=== PATIENT | female | born 1960 | race Caucasian/White ===

== ENCOUNTER 2019-03-09 15:23 | Inpatient (IN) | payer MEDICARE, MEDICAID, SELFPAY ==
[2019-03-09] VITALS (16 sets, daily range): BP systolic 113–142; BP diastolic 49–117; PULSE 78–112; RESP 13–21; TEMP 36.7–37.3; O2SAT 96–100
--- NOTE | 2019-03-09 15:57 | ED.GENADUL_ITS ---
Discharge Plan Disposition Patient Disposition: [facility] INPATIENT Condition: Stable Discharge Details Chief Complaint: Abd Prob Clinical Impression: Chronic diarrhea, Enteritis, Transaminitis, Chronic vomiting Admit Date/Time: 03/09/19 19:42 Admit Provider: David Roberts Attending Provider: David Roberts Primary Care Provider: Ravindra Knowles ED Provider: Freda Stout Discharge Data Discharge Date/Time-TO BE ENTERED AT DEPARTURE: 03/09/19 20:41 Medical Decision Making 58-year-old female with history of COPD, diabetes, and history of cholecystectomy 2 mesenteric stents due to mesenteric ischemia who presents with nausea, vomiting and diarrhea for the past 2 months, worse today and associated with right upper quadrant abdominal and back pain. Vitals within normal limits. She appears nontoxic. She has tenderness to palpation in the right upper quadrant. Differential diagnosis includes gastroenteritis, C. difficile colitis, mesenteric ischemia, diverticulitis, UTI, cyclic vomiting. 1700 --Labs and IV and fluids ordered on arrival and notes a normal white blood cell count, hemoglobin of 10 platelets 621, creatinine 1.46, GFR 36, lactate 1.5, AST 707, ALT 268, alk phos 230, troponin and lipase within normal limits. Would prefer CT with IV contrast but due to decreased renal function, CT abdomen and pelvis with p.o. contrast only ordered. 184 -- CT notes findings consistent with enteritis versus inflammatory bowel disease or other infectious etiology. Patient gave a large bowel movement here which was foul-smelling, greenish, loose and watery. 1900 -- Patient is not aware of a previous history of elevated liver enzymes. As her symptoms are worsening, in the setting of unknown onset of transaminitis, concern for infectious diarrhea, and with continued IV fluids with possible attempt at CT abdomen with IV contrast, will admit for observation and further evaluation. Case discussed with hospitalist and accepts patient for admission. Medical Records Medical records reviewed: Yes I reviewed the patient's medical records. HPI General Mode of arrival: ambulatory . Date/Time Provider Initiated Documentation: 03/09/19 15:40 . Limitations to Documentation: no limitations . Information obtained by: patient . HPI Narrative: Patient is a 58-year-old female with history of COPD, diabetes and diabetic neuropathy with 2 mesenteric stents due to mesenteric ischemia who presents the ED with complaint of vomiting and diarrhea for the past 2 months. States the vomiting occurs 1-3 times daily, usually in the morning and with any food or drink. She admits to 6-8 episodes of watery brown diarrhea daily. She also admits to intermittent right upper quadrant abdominal pain but states this became more constant today with radiation around to her right mid back. She describes the pain as a dull ache. She is visiting here from [place] with her daughter. She was planning to return tomorrow. She denies any fever, recent antibiotics, recent hospital admission, or urinary symptoms. Related Data Home Medications Medication Instructions Recorded Confirmed dexlansoprazole [Dexilant] 60 mg PO DAILY 03/09/19 03/09/19 Allergies Allergy/AdvReac Type Severity Reaction Status Date / Time Penicillins Allergy Intermediate Unverified 03/09/19 15:37 rifampin Allergy Intermediate Unverified 03/09/19 15:37 levofloxacin [From Levaquin] Allergy Unverified 03/09/19 15:38 General Stated Complaint: Abd Prob LIBERTAD: 3 Review of Systems Review of Systems All systems reviewed & are unremarkable except as noted in HPI and below Constitutional Reports as per HPI, Denies chills and Denies fever(s) Eyes Denies blurry vision ENT Denies dizziness, Denies sore throat and Denies throat swelling Cardiovascular Denies chest pain and Denies dyspnea Respiratory Denies cough and Denies dyspnea Gastrointestinal Reports abdominal pain, Reports diarrhea and Reports vomiting Genitourinary Denies hematuria and Denies dysuria Musculoskeletal Denies back pain and Denies numbness Integumentary/Breasts Denies lesions and Denies rash Neurologic Denies dizziness, Denies focal weakness and Denies numbness Allergic/Immunologic Denies throat swelling [facility] Medical History COPD (chronic obstructive pulmonary disease) (Chronic) Diabetes (Chronic) Diabetic neuropathy (Acute) Temporal arteritis (Acute) Surgical History History of hernia repair (Chronic) Hx of cholecystectomy (Chronic) Mesenteric ischemia (Acute) Social History Smoking/Tobacco Use Status: Former Tobacco Use Alcohol Intake: never Substance use type: does not use Do you feel safe at home: Yes Exam Const General: cooperative, healthy appearing and no acute distress [facility] Head: normal to inspection Face and sinus: normal facial exam Eyes General: appearance normal, both eyes and all related structures EOM: EOM intact bilaterally Neck Neck: normal visual inspection and No submandibular swelling Lymphatic: no lymphadenopathy noted Chest Chest: normal inspection of the chest and no tenderness Resp Effort & Inspection: normal respiratory effort and able to speak in complete sentences Auscultation: clear to auscultation bilaterally Cardio Rate: regular rate Rhythm: regular rhythm GI Inspection: normal to inspection and obesity Palpation: soft, not firm, not rigid and tender in the RUQ Auscultation: hypoactive bowel sounds Other: Stool obtained and loose and watery and greenish foul-smelling Skin General skin exam: no rashes or lesions noted Neuro General: alert, awake and oriented x3 Cognition: normal cognition Speech: speech normal Motor: muscle tone normal throughout Sensory Exam: no sensory deficits noted Extrem General: normal to inspection, full ROM, normal capillary refill, no calf tenderness bilaterally and no edema Psych Appearance: grossly normal Mental Status: mental status grossly normal Speech and Movement: speech and movement normal Affect: normal affect Course Vital Signs Temperature 98.1 F 03/09/19 15:34 Pulse 92 H 03/09/19 15:34 Respiratory Rate 16 03/09/19 15:34 Blood Pressure 132/52 L 03/09/19 15:34 Pulse Oximetry 96 03/09/19 15:34 Temperature 98.1 F 03/09/19 15:34 Temperature Source Temporal Artery Scan 03/09/19 15:34 Pulse 92 H 03/09/19 15:34 Respiratory Rate 16 03/09/19 15:34 Respiratory Effort 03/09/19 15:52 Blood Pressure 132/52 L 03/09/19 15:34 Blood Pressure Position Sitting 03/09/19 15:34 Pulse Oximetry 96 03/09/19 15:34 Oxygen Delivery Method Nasal Cannula 03/09/19 15:34 Oxygen Flow Rate 0 03/09/19 15:34 Pain Level 9 03/09/19 15:34 Comment 03/09/19 15:34
[2019-03-09 16:10] LABS: Abs Immature Grans 0.02 k/cumm (0.0-0.09); Absolute Basophil Count 0.03 k/cumm (0.0-0.2); Absolute Eosinophil Count 0.08 k/cumm (0.0-0.7); Absolute Lymphocyte Count 1.45 k/cumm (1.2-3.4); Absolute Monocyte Count 0.72 k/cumm (0.11-0.7); Absolute Neutrophil Count 7.15 k/cumm (1.2-6.7); Basophils % 0.3; Eosinophils % 0.8; HCT 32.6 % (36.0-46.0); Immature Grans % 0.2; Lymphocytes % 15.3; Mean Corp. HGB Concentration 30.7 g/dL (32.0-36.0); Mean Corpuscular Hemoglobin 28.5 pg (27.0-33.0); Mean Corpuscular Volume 92.9 fL (80-95); Mean Platelet Volume 9.2 fL (8.0-11.0); Monocytes % 7.6; Neutrophils % 75.8; Platelet Count 621 x1000/uL (130-400); RBC 3.51 m/cumm (4.00-5.20); RBC Distribution Width 15.7 % (11.7-14.6); White Blood Cell Count 9.45 k/cumm (4.4-10.8)
[2019-03-09 16:11] LABS: Lactate 1.5 mmol/L (0.6-1.4)
[2019-03-09 16:26] LABS: ALT 268 U/L (12-78); AST 707 U/L (15-37); Albumin 3.4 g/dL (3.4-5.0); Alkaline Phosphatase 230 U/L (46-116); Anion Gap 8.8 mmol/L (3-11); BUN 28 mg/dL (7-18); Bilirubin, Total 0.5 mg/dL (0.2-1.0); CO2 30.2 mmol/L (21.0-32.0); CREATININE 1.46 mg/dL (0.55-1.02); Calcium 9.4 mg/dL (8.5-10.1); Chloride 100 mmol/L (98-107); Estimated GFR 36.54 (mL/min/1.73m2); Glucose 112 mg/dL (70-100); Lipase 118 U/L (73-393); Magnesium 1.7 mg/dL (1.8-2.4); Potassium 4.3 mmol/L (3.5-5.1); Sodium 139 mmol/L (136-145)
[2019-03-09 16:27] LABS: Troponin I < 0.05 ng/mL (0.00-0.06)
--- NOTE | 2019-03-09 16:30 | DI.CT_ITS ---
SYMPTOM/DIAGNOSIS: ABDOMINAL PAIN, NAUSEA/VOMITING, R/O ACUTE PROCESS ABDOMINAL AND PELVIC CT: 03/09 CT examination of the abdomen and pelvis was performed with oral contrast only. Images obtained through the lung bases are unremarkable. Mitral valve prosthesis noted in position. Liver, spleen and pancreas are unremarkable by noncontrast criteria. No biliary dilatation seen. Abdominal aorta is of normal diameter. Left renal cyst noted at the inferior pole. No evidence of urinary tract calcification or obstruction. No abdominal or pelvic adenopathy. Small fat containing umbilical hernia and small bilateral fat containing inguinal hernias noted. [employer] structures are unremarkable for age. There is loop of jejunum with findings suggesting thickened wall in the proximal jejunum. No gross evidence of obstruction with nondilated stomach. Remainder of the visualized small bowel and colon are unremarkable. No evidence of appendicitis or diverticulitis. CONCLUSION: Focal jejunal wall thickening, etiology uncertain. Appropriate follow up studies and clinical correlation requested.
[2019-03-09] MEDS: Normal Saline 500 ML IV (17:28)
[2019-03-09] MEDS: Breeza Beverage 473 ML BTL PO (18:01)
--- NOTE | 2019-03-09 18:46 | DI.VRAD_ITS ---
EXAM: CT Abdomen and Pelvis Without Contrast EXAM DATE/TIME: 03/09/2019 4:32 PM CLINICAL HISTORY: 58 years old, female; Nausea and vomiting; Abdominal pain TECHNIQUE: Imaging protocol: Axial computed tomography images of the abdomen and pelvis without contrast. Coronal and sagittal reformatted images were created and reviewed. COMPARISON: No relevant prior studies available. FINDINGS: Heart: Dense mitral valve calcifications. Liver: Unenhanced liver appears unremarkable. Gallbladder and bile ducts: Status post cholecystectomy. Pancreas: The pancreas is normal. Spleen: Normal. No splenomegaly. Adrenals: No adrenal mass is present. Kidneys and ureters: Mild perinephric stranding on the left. 2.5 cm and 2.6 cm left lower pole renal cysts. Kidneys are otherwise unremarkable. Stomach and bowel: There is circumferential thickening of the wall of a loop of proximal jejunum that may represent enteritis. Appendix: A normal-appearing appendix is not identified. Please correlate with patient's postsurgical history. Intraperitoneal space: Normal. No free air. No significant fluid collection. Vasculature: Atherosclerotic calcifications of the aorta and iliac arteries without evidence of aneurysm. Lymph nodes: Normal. No enlarged lymph nodes. Bladder: Unremarkable as visualized. Reproductive: Unremarkable as visualized. Bones/joints: Degenerative changes of the lumbar spine without acute osseous abnormality. Degenerative changes of the lumbar spine without acute osseous abnormality. Soft tissues: Small fat containing umbilical hernia. There is small fat-containing left inguinal hernia. IMPRESSION: There is circumferential thickening of the wall of a loop of proximal jejunum that may represent enteritis. Changes of inflammatory bowel disease cannot be excluded. Infectious etiologies are also possible. Please correlate with patient's clinical and laboratory findings. This could be further evaluated with a followup small bowel series. Dictated and Authenticated by: Juan Foster MD. Ordering:KEERTHI Barba MD
[2019-03-09] MEDS: metroNIDAZOLE 500 MG/100 ML BAG 100 MG IVPB (19:45)
[2019-03-09] MEDS: Vancomycin 125 MG CAP PO (20:00)
--- NOTE | 2019-03-09 21:13 | W.PM.HP.N ---
Date of service: 03/09/19 Time of Service: 21:13 Assessment and Plan (1) Diarrhea of presumed infectious origin: Current visit: Yes Status: Acute patient w/ 2 month hx of diarrhea w/out fever and no ill contacts and no recent hospitalizations nor any antibiotic use. Her C. difficile antigen was positive but her toxin was negative, therefore stool sent for PCR confirmation. Meanwhile she is being treated w/ iv fluid hydration, iv flagyl and oral vancocin. However, her transaminitis and localization of her abdominal pains to her RUQ can not be explained by her C diff. See below for further evaluation plans (2) Transaminitis: Current visit: Yes Status: Acute given her diarrhea and elevated LFT's (transaminases and alkaline phosphatase0 without rise in total bilirubin, and prior cholecystectomy, choledocholithiasis and cholangitis needed to be rule out. Her CT abdomen and pelvis with contrast did not support either diagnosis, nevertheless, I will get abdominal US to rule out any biliary ductal dilatation. She will also have labs for acute hepatitis profile drawn given her diarrhea. Hold her metformin and Daliresp (3) RUQ abdominal pain: Current visit: Yes Status: Acute work as above. will treat her pain w/ narcotic analgesics. (4) COPD (chronic obstructive pulmonary disease): Current visit: Yes Status: Chronic continue home bronchodilators but hold her Daliresp in light of her elevated transaminases Qualifiers: COPD type: unspecified COPD Qualified Code(s): J44.9 - Chronic obstructive pulmonary disease, unspecified (5) Diabetic neuropathy: Current visit: Yes Status: Acute continue treatment of her DM w/ insulin including CHO coverage and SSI for elevated glucose readings. continue he Lantus at her home dose. check an A1c. 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 She is now having explosive watery diarrhea. She denies a fever or rigors. She is visiting here from [facility] and was visiting her daughter in [facility]. She was evaluated sometime in the last couple months in the emergency room in [place] and is followed up with her primary care provider with no diagnosis of her diarrhea. She says the abdominal pain is similar to when she had the mesenteric ischemia. The pain is in the right upper quadrant and radiates into the middle of her back and is a dull achy pain that gets worse at times. Work-up in the emergency room included routine labs and a noncontrast CT scan of her abdomen pelvis. CBC shows a chronic anemia with a hemoglobin of 10 g hematocrit 32%. Review of her labs from [facility] from 2018 showed her hemoglobin was previously 11 g. She has an elevated platelet count 621,000 and she does have an increase in her neutrophils at 7150. Her chemistry profile shows prerenal azotemia with a BUN of 28 creatinine 1.46. Electrolytes show a low magnesium of 1.7 but normal potassium and sodium and chlorides. Blood lactate was elevated initially at 1.5 and a repeat level 5 hours later came down to 0.6 after IV fluid hydration. She has a transaminitis with an AST of 707, ALT 268 and alkaline phosphatase of 230. Her total bilirubin is normal at 0.5 and her albumin is normal at 3.4 and her lipase is normal at 118. Troponin was less than 0.05. Urinalysis was ordered but has not been obtained. Stool was sent for cultures as well as C. difficile studies and the preliminary report demonstrates a positive C. difficile antigen but negative for C. difficile toxin and studies have been sent for PCR analysis stool for occult blood was negative. CT scan of the abdomen and pelvis without contrast showed circumferential thickening of the wall of a loop of proximal jejunum possibly representing enteritis. The rest of the CT scan was unremarkable. Liver appeared unremarkable and the gallbladder and bile ducts show she is status post cholecystectomy and the pancreas was normal as well as the spleen and adrenal glands. She has some left lower pole renal cyst but otherwise unremarkable kidneys. Appendix appear to be normal. She has atherosclerotic calcifications of the aorta and iliac arteries without evidence of aneurysm. She has a small fat-containing umbilical hernia small fat-containing left inguinal hernia with no incarceration. Patient is being admitted for IV fluid hydration analgesics and antiemetics and treatment for C. difficile enteritis. Further work-up will be performed to evaluate her transaminitis. In light of her history of mesenteric ischemia and presenting with similar pains there is some concern for hepatic thrombosis. Her acute kidney injury presumably is due to her dehydration. The anemia appears to be a chronic issue and there is been no evidence of acute GI bleeding. Review of Systems Constitutional Reports as per HPI, Denies chills, Reports fatigue, Denies fever(s) and Reports poor appetite Cardiovascular Reports system reviewed and no additional complaints, except as docu Respiratory Reports system reviewed and no additional complaints, except as docu Gastrointestinal Reports as per HPI, Reports abdominal pain, Denies coffee ground emesis, Denies dyspepsia, Denies heartburn, Reports diarrhea, Reports nausea, Reports vomiting and Denies hematemesis Genitourinary Reports system reviewed and no additional complaints, except [facility] Musculoskeletal Reports system reviewed and no additional complaints, except as [facility] Integumentary/Breasts Reports system reviewed and no additional complaints, except as [facility] Neurologic Reports system reviewed and no additional complaints, except as [facility] Psychiatric Reports system reviewed and no additional complaints, except as [facility] Endocrine Reports fatigue Hematologic/Lymphatic Reports system reviewed and no additional complaints, except as [facility] Allergic/Immunologic Reports system reviewed and no additional complaints, except as [facility] PFSH Medical History COPD (chronic obstructive pulmonary disease) (Chronic) Diabetes (Chronic) Diabetic neuropathy (Acute) Temporal arteritis (Acute) Surgical History History of hernia repair (Chronic) Hx of cholecystectomy (Chronic) Mesenteric ischemia (Acute) Social History Smoking/Tobacco Use Status: Former Tobacco Use Alcohol Intake: never Substance use type: does not use Do you feel safe at home: Yes Meds Home Medications Medication Instructions Recorded Confirmed Type albuterol sulfate [ProAir HFA] 2 puff INHALATION PRN PRN 03/09/19 03/09/19 History amlodipine [Norvasc] 10 mg PO DAILY 03/09/19 03/09/19 History aspirin 81 mg PO BID 03/09/19 03/09/19 History bupropion HCl [Wellbutrin SR] PO 03/09/19 History chlorthalidone mg 03/09/19 History cholecalciferol (vitamin D3) 5,000 unit PO DAILY 03/09/19 03/09/19 History [Vitamin D3] clopidogrel [Plavix] 75 mg PO DAILY 03/09/19 03/09/19 History dexlansoprazole [Dexilant] 60 mg PO DAILY 03/09/19 03/09/19 History dicyclomine 20 mg PO QID PRN PRN 03/09/19 03/09/19 History duloxetine [Cymbalta] 60 mg PO DAILY 03/09/19 03/09/19 History fluticasone propion-salmeterol 1 inh INHALATION BID 03/09/19 03/09/19 History [Advair Diskus] insulin glargine [Lantus Solostar 16 unit SUBCUT HS 03/09/19 03/09/19 History U-100 Insulin] lorazepam 1 mg PO HS 03/09/19 03/09/19 History losartan-hydrochlorothiazide 1 tab PO DAILY 03/09/19 03/09/19 History magnesium 400 mg PO BID 03/09/19 03/09/19 History metformin 1,000 mg PO BID 03/09/19 03/09/19 History metoprolol succinate 25 mg PO HS 03/09/19 03/09/19 History roflumilast [Daliresp] 500 mcg PO DAILY 03/09/19 03/09/19 History tiotropium bromide [Spiriva with 1 cap INHALATION DAILY 03/09/19 03/09/19 History HandiHaler] tramadol [Ultram] 50 mg PO HS 03/09/19 03/09/19 History Allergies Allergy/AdvReac Type Severity Reaction Status Date / Time Penicillins Allergy Intermediate Unverified 03/09/19 15:37 rifampin Allergy Intermediate Unverified 03/09/19 15:37 levofloxacin [From Levaquin] Allergy Unverified 03/09/19 15:38 Exam Const General: cooperative and ill appearing chronically Nutritional Appearance: obese morbidly obese Orientation: alert, awake and oriented x3 HENMT Head: normal to inspection, no palpable skull fracture and normocephalic Mouth: oral mucosae normal, lip normal, tongue normal, oropharynx normal and moist mucous membranes Teeth and gingiva: dentures and edentulous Eyes General: appearance normal, both eyes and all related structures Visual Prather: normal visual prather by confrontation Alignment and Position: alignment normal Periorbital: periorbital findings normal Eyelids: eyelids normal Conjunctivae: conjunctivae normal Sclera: sclerae normal Cornea: corneas normal Pupils: PERRL EOM: EOM intact bilaterally Direct ophthalmoscopy: normal light reflex Neck Neck: normal visual inspection, full ROM, no lymphadenopathy, trachea midline and no JVD Carotids: normal carotid upstroke Lymphatic: no lymphadenopathy noted Resp Effort & Inspection: normal respiratory effort, able to speak in complete sentences and prolonged expiratory phase Auscultation: clear to auscultation bilaterally Cardio Jugular venous pressure: no JVD Palpation: normal PMI Rate: regular rate Rhythm: regular rhythm Heart Sounds: S1 normal, S2 normal, normal, physiologic split S2, no gallops, no murmurs and no rubs Bruits: no abdominal aortic bruits and no carotid bruits Pulses: posterior tibial pulses present bilaterally diminished and dorsalis pedis pulses present bilaterally diminished GI Inspection: obesity Palpation: soft, no hepatosplenomegaly, guarding in the RUQ and tender in the RUQ; Billingsley's sign negative and with no rebound tenderness Percussion: normal to percussion Auscultation: normal bowel sounds General: bladder normal to palpation and No CVA tenderness Bimanual Exam- Vagina & Uterus: bladder normal to palpation Back/Spine/Pelvis Back: no CVA tenderness Cervical Spine: normal cervical lordosis Thoracic/Lumbar Spine: thoracic and lumbar spine normal to inspection Skin General skin exam: no rashes or lesions noted, elasticity normal and turgor normal Lesions: no lesions Rashes: no rashes Neuro General: alert, awake, oriented x3, moves all extremities and no focal motor deficits Cranial Nerves: CN's II-XI intact bilaterally Cognition: normal cognition Speech: speech normal Motor: muscle tone normal throughout and no movement abnormalities noted Sensory Exam: no sensory deficits noted Extrem General: normal to inspection, full ROM, no joint enlargement, no clubbing, cyanosis or edema and no calf tenderness Psych Appearance: grossly normal Mental Status: mental status grossly normal Speech and Movement: speech and movement normal Mood: congruent mood Affect: normal affect Attitude: cooperative Thought Process: normal Thought Content: normal Insight: insight good Judgment: judgment good Results Imaging Additional studies: CT angiogram abdomen and pelvis: FINDINGS: VASCULATURE: Aorta: No aortic aneurysm. No aortic dissection. Celiac trunk and mesenteric arteries: Prominent atherosclerotic calcification of the celiac trunk limits evaluation. Stent of the proximal superior mesenteric artery evaluation for stenosis of the stent limited due to be marked artifact but with flow seen distal to this head without stenosis. Renal arteries: No occlusion or significant stenosis. Right iliac arteries: No occlusion or significant stenosis. Left iliac arteries: No occlusion or significant stenosis. ABDOMEN: Liver: No mass. Gallbladder and bile ducts: Status post cholecystectomy. Pancreas: Unremarkable. No mass. No ductal dilation. Spleen: Unremarkable. No splenomegaly. Adrenals: Unremarkable. No mass. Kidneys and ureters: Renal cysts up to 3 cm. No hydronephrosis. Stomach and bowel: Colonic diverticula. Appendix: No evidence of appendicitis. PELVIS: Bladder: Unremarkable. No mass. Reproductive: Unremarkable as visualized. ABDOMEN and PELVIS: Intraperitoneal space: Unremarkable. No free air. No significant fluid collection. Bones/joints: No acute fracture. No dislocation. Soft tissues: Tiny fat-containing left inguinal hernia. Fat-containing periumbilical ventral hernia. Lymph nodes: Unremarkable. No enlarged lymph nodes. IMPRESSION: No acute finding. Dictated and Authenticated by: Nirav Cadena MD. Labs : 03/10/19 06:25 03/10/19 06:25 Laboratory Results - last 24 hr 03/09/19 03/09/19 03/09/19 16:02 16:02 16:02 WBC 9.45 RBC 3.51 L Hgb 10.0 L Hct 32.6 L MCV 92.9 MCH 28.5 MCHC 30.7 L RDW 15.7 H Plt Count 621 H MPV 9.2 Immature Gran % 0.2 Neutrophils % 75.8 Lymphocytes % 15.3 Monocytes % 7.6 Eosinophils % 0.8 Basophils % 0.3 Absolute Neutrophils 7.15 H Absolute Lymphocytes 1.45 Absolute Monocytes 0.72 H Absolute Eosinophils 0.08 Absolute Basophils 0.03 Sodium 139 Potassium 4.3 Chloride 100 Carbon Dioxide 30.2 Anion Gap 8.8 BUN 28 H Creatinine 1.46 H Estimated GFR/1.73 m2 36.54 Glucose 112 H Lactate 1.5 H Calcium 9.4 Magnesium 1.7 L Total Bilirubin 0.5 AST 707 H ALT 268 H Alkaline Phosphatase 230 H Troponin I < 0.05 Total Protein 8.0 Albumin 3.4 Lipase 118 Last Vital Signs Temp 36.7 C 03/09/19 15:34 Pulse 78 03/09/19 18:01 Resp 16 03/09/19 18:10 BP 113/49 L 03/09/19 18:01 Pulse Ox 97 03/09/19 18:10
[2019-03-09 21:33] LABS: Lactate 0.6 mmol/L (0.6-1.4)
[2019-03-09] MEDS: MAGNESIUM SULFATE 2 GM/50 ML BAG IV (21:42)
[2019-03-09] MEDS: Normal Saline 1,000 ML 125 ML IV (21:42)
[2019-03-09] MEDS: Normal Saline Flush 10 ML SYR IVP ×2 (21:42→23:23)
[2019-03-09] MEDS: Pantoprazole 40 MG VIAL IVP (21:42)
--- NOTE | 2019-03-09 22:21 | NUR.NOTE ---
Patient was admitted to the med-surg unit with a history of diarrhoea for the passed 2 months. Also experiencing vomiting, right upper quadrant pain that was not being relieved with medication or lying on her stomach as previous times. Pain intensified today while she was at her daughter house and would not go away. She state she had 2 stents placed into her abdomen in 2015 and 2016 due to blood clots. She went on to state that the symptoms that she was experiencing was similar to those that she had experienced when she was diagnosed with blood clot. Pt uses 3L oxygen at home, she also state she has a home health assistant that comes in four times per week and a RN once per week to get her medications check. Head to toe assessment done and charted.
[2019-03-09] MEDS: MORPHine 2 MG/ML SYR IVP (23:21)
[2019-03-09] MEDS: Normal Saline 1,000 ML 1000 ML IV (23:21)
[2019-03-09 23:34] LABS: Bilirubin Negative (Negative); Blood Trace-intact (Negative); Clarity Sl Cloudy (Clear); Glucose Negative (Negative); Ketones Negative (Negative); Leukocyte Esterase Small (Negative); Nitrite Negative (Negative); Specific Gravity <= 1.005 (1.005-1.025); Urobilinogen 0.2 EU/dL (Up TO 0.2)
[2019-03-09 23:41] LABS: Bacteria Few HPF (Negative); C & S Indicated? No/Sq. Contamination; Casts Negative LPF (Negative); Crystals Negative HPF (Negative); Epithelial Cells Many HPF (Negative); Mucus Negative (Negative)
[2019-03-10] VITALS (7 sets, daily range): BP systolic 110–148; BP diastolic 66–75; PULSE 77–87; RESP 17–18; TEMP 35.8–36.8; O2SAT 96–98
[2019-03-10] MEDS: Vancomycin 125 MG CAP 500 MG PO ×4 (00:25→17:04)
[2019-03-10] MEDS: LORazepam 1 MG TAB PO ×2 (00:25→21:29)
[2019-03-10] MEDS: Insulin Glargine 300 UNITS/3 ML PEN 16 UNITS SC ×2 (00:25→21:28)
[2019-03-10] MEDS: MAGNESIUM SULFATE 2 GM/50 ML BAG IV (00:26)
--- NOTE | 2019-03-10 01:00 | DI.CT_ITS ---
SYMPTOM/DIAGNOSIS: ACUTE ABDOMINAL PAIN, TRANSAMINITIS R/O ISCHEMIA ABDOMINAL AND PELVIC CT ANGIOGRAM 03/10 CT angiography was performed with multi slice acquisition and multi planar and 3D reconstruction. CT angiography of the abdomen and pelvis was performed and is compared with recent oral contrast only CT. The jejunal wall thickening noted on the earlier study is not present on this examination and appears to have been transient. No evidence of obstruction. There is oral contrast material in the colon extending to the rectum and the oral contrast material has essentially cleared from the small bowel. Enhanced appearance of liver, spleen and pancreas is unremarkable. Enhanced appearance of the kidneys is unremarkable. Adrenals appear normal. There is calcified atheromatous plaque involving abdominal aorta and all branch vessels. Celiac trunk origin is narrowed and obscured. Presumed SMA stent vs calcification, more distal vessels are opacified. Renal arteries show calcified origins which are difficult to quantify for stenosis. Inferior mesenteric artery origin also obscured and stenosed with flow noted more distally. No focal bowel pathology identified. CONCLUSION: Severe atheromatous disease, no evidence of acute occlusion. Please see above discussion.
[2019-03-10] MEDS: Omnipaque 350 MG/ML 100 ML BTL IJ (01:07)
[2019-03-10] MEDS: Normal Saline Flush 10 ML SYR IVP ×3 (01:09→17:05)
--- NOTE | 2019-03-10 01:43 | DI.VRAD_ITS ---
EXAM: CT Angiography Abdomen and Pelvis With Contrast EXAM DATE/TIME: 03/10/2019 12:12 AM CLINICAL HISTORY: 58 years old, female; Prior surgery; Surgery date: 6+ months; Surgery type: Hernia repair, 2 stents mesenteric ischemia, cholecystectomy; Patient HX: Acute abdominal pain, transaminitis R/O ischemia; Additional info: Known elevated labs, ok to inject per Dr. Alejandra wilkins 1.46 grf 36.54 TECHNIQUE: Imaging protocol: Axial computed tomographic angiography images of the abdomen and pelvis with intravenous contrast material. Coronal and sagittal reformatted images were created and reviewed. 3D rendering: MIP reconstructed images were created and reviewed. Radiation optimization: All CT scans at this facility use at least one of these dose optimization techniques: automated exposure control; mA and/or kV adjustment per patient size (includes targeted exams where dose is matched to clinical indication); or iterative reconstruction. Contrast material: OMNIPAQUE 350;Contrast volume: 90 ml;Contrast route: IV RAC; COMPARISON: CT ABDOMEN PELVIS WO 03/09/2019 5:59 PM FINDINGS: VASCULATURE: Aorta: No aortic aneurysm. No aortic dissection. Celiac trunk and mesenteric arteries: Prominent atherosclerotic calcification of the celiac trunk limits evaluation. Stent of the proximal superior mesenteric artery evaluation for stenosis of the stent limited due to be marked artifact but with flow seen distal to this head without stenosis. Renal arteries: No occlusion or significant stenosis. Right iliac arteries: No occlusion or significant stenosis. Left iliac arteries: No occlusion or significant stenosis. ABDOMEN: Liver: No mass. Gallbladder and bile ducts: Status post cholecystectomy. Pancreas: Unremarkable. No mass. No ductal dilation. Spleen: Unremarkable. No splenomegaly. Adrenals: Unremarkable. No mass. Kidneys and ureters: Renal cysts up to 3 cm. No hydronephrosis. Stomach and bowel: Colonic diverticula. Appendix: No evidence of appendicitis. PELVIS: Bladder: Unremarkable. No mass. Reproductive: Unremarkable as visualized. ABDOMEN and PELVIS: Intraperitoneal space: Unremarkable. No free air. No significant fluid collection. Bones/joints: No acute fracture. No dislocation. Soft tissues: Tiny fat-containing left inguinal hernia. Fat-containing periumbilical ventral hernia. Lymph nodes: Unremarkable. No enlarged lymph nodes. IMPRESSION: No acute finding. Dictated and Authenticated by: Nirav Cadena MD. Ordering:[facility] Alejandra Hernandez MD
[2019-03-10] MEDS: traMADol 50 MG TAB PO ×2 (01:56→21:29)
[2019-03-10] MEDS: Metoprolol CR 25 MG TABCR PO ×2 (01:56→21:29)
[2019-03-10] MEDS: metroNIDAZOLE 500 MG/100 ML BAG 100 MG IVPB ×4 (02:29→19:40)
[2019-03-10] MEDS: Normal Saline 1,000 ML 125 ML IV ×2 (04:57→18:47)
--- NOTE | 2019-03-10 07:00 | DI.US_ITS ---
SYMPTOM/DIAGNOSIS: ABDOMINAL PAIN, TRANSAMINITIS ABDOMINAL ULTRASOUND: 03/10 The visualized liver parenchyma is normal in appearance. There has reportedly been a prior cholecystectomy. Common hepatic duct is of the upper limits of normal at 12-13 mm for post cholecystectomy. The pancreas is not well seen. Spleen is unremarkable in appearance. Aorta is obscured by overlying bowel gas. IVC grossly of normal diameter Kidneys appear intact. CONCLUSION: No specific abnormality identified in a patient who is status post cholecystectomy.
[2019-03-10 07:27] LABS: Abs Immature Grans 0.01 k/cumm (0.0-0.09); Absolute Basophil Count 0.03 k/cumm (0.0-0.2); Absolute Lymphocyte Count 1.01 k/cumm (1.2-3.4); Absolute Monocyte Count 0.45 k/cumm (0.11-0.7); Absolute Neutrophil Count 2.41 k/cumm (1.2-6.7); Basophils % 0.7; Eosinophils % 2.5; HCT 29.7 % (36.0-46.0); HGB 9.1 g/dL (12.0-15.5); Immature Grans % 0.2; Lymphocytes % 25.2; Mean Corp. HGB Concentration 30.6 g/dL (32.0-36.0); Mean Corpuscular Hemoglobin 28.4 pg (27.0-33.0); Mean Corpuscular Volume 92.8 fL (80-95); Mean Platelet Volume 9.2 fL (8.0-11.0); Monocytes % 11.2; Neutrophils % 60.2; Platelet Count 548 x1000/uL (130-400); RBC Distribution Width 15.7 % (11.7-14.6); White Blood Cell Count 4.01 k/cumm (4.4-10.8)
--- NOTE | 2019-03-10 07:54 | PDOC.CMIN ---
- If Service Date Differs Date of service: 03/10/19 Time of Service: 07:54 Care Management Initial Assess REASON FOR HOSPITALIZATION:: Abdominal pain, NVD PAST MEDICAL HISTORY/PAST SURGICAL HISTORY:: Medical History: COPD (chronic obstructive pulmonary disease) (Chronic). Diabetes (Chronic). Diabetic neuropathy (Acute). Temporal arteritis (Acute). Surgical History : History of hernia repair (Chronic). Hx of cholecystectomy (Chronic). Mesenteric ischemia (Acute) PREVIOUS FUNCTIONAL STATUS/SOCIAL/FAMILY SUPPORTS:: Angela lives in an apartment in [place], [place] with her 2 adult sons. Both sons are long distance truck drivers so Angela is alone much of the time. Angela also has 2 daughters who live in [place]. She is hoping to be able to move in with one of her daughters.Angela has a lot of community services where she lives. She receives meals on wheels and home help 4 times a week. She also has a director case management. CURRENT FUNCTIONAL STATUS:: Angela was sitting up in bed when CM met with her. She was pleasant and cooperative and engaged readily in conversation. Angela talked about how difficult it is to manage without the ability to drive. She is blind in one eye and has cataracts in the other. She states that her children are helpful but she hates to bother them because they are busy working and have their own lives. ADVANCE DIRECTIVES:: None on file. Patient lives in [place] and has advanced directives registered at her local hospital in [place]. Has patient been provided with information about the portal?: Yes Did the patient sign up for the portal?: No CODE STATUS:: Full Code INSURANCE COVERAGE / FINANCIAL ISSUES:: medicare. [facility] CURRENT HOME/COMMUNITY SERVICES/EQUIPMENT:: Angela has [employer] and caregivers 4 days a week for help with shopping, housework, laundry etc. Angela also has a vocational childcare teacher with [facility] by the name of Denise Dinh.She uses home oxygen. PRIMARY CARE PHYSICIAN:: Ravindra Knowles POTENTIAL DISCHARGE NEEDS:: no new services anticipated PATIENT/FAMILY EDUCATION NEEDS:: Discharge plan, limitations, follow up plan, Ask Me Three ANTICIPATED BARRIERS TO DISCHARGE:: none TRANSPORTATION:: via private vehicle with daughter when ready. PLAN:: Angela is undergoing testing to identify the cause of her transaminitis. She will likely be discharged home with a resumption of existing services. CM will continue to support patient, family and discharge planning considerations.
[2019-03-10 07:56] LABS: ALT 645 U/L (12-78); Albumin 2.9 g/dL (3.4-5.0); Alkaline Phosphatase 314 U/L (46-116); Anion Gap 8.6 mmol/L (3-11); BUN 19 mg/dL (7-18); Bilirubin, Total 0.6 mg/dL (0.2-1.0); CO2 29.4 mmol/L (21.0-32.0); CREATININE 1.22 mg/dL (0.55-1.02); Calcium 8.6 mg/dL (8.5-10.1); Chloride 104 mmol/L (98-107); Estimated GFR 44.96 (mL/min/1.73m2); Glucose 101 mg/dL (70-100); Magnesium 2.6 mg/dL (1.8-2.4); Potassium 3.7 mmol/L (3.5-5.1); Sodium 142 mmol/L (136-145)
[2019-03-10 07:58] LABS: AST 1247 U/L (15-37)
[2019-03-10] MEDS: Enoxaparin 40 MG/0.4 ML SYR SC (08:01)
[2019-03-10] MEDS: Roflumilast 500 MCG TAB PO (08:02)
[2019-03-10] MEDS: Magnesium Oxide 400 MG TAB PO ×2 (08:02→19:40)
[2019-03-10] MEDS: Cholecalciferol (Vitamin D3) 1,000 UNIT TAB 5000 UNITS PO (08:02)
[2019-03-10] MEDS: hydroCHLOROthiazide 12.5 MG TAB PO (08:02)
[2019-03-10] MEDS: Aspirin 81 MG CHEW PO ×2 (08:02→19:39)
[2019-03-10 08:03] LABS: Iron 60 ug/dL (50-175); Total Iron Binding Capacity 300 ug/dL (250-450); Transferrin Sat 20 % (15-50)
[2019-03-10] MEDS: DULoxetine 30 MG CAP 60 MG PO (08:03)
[2019-03-10] MEDS: Clopidogrel 75 MG TAB PO (08:03)
[2019-03-10] MEDS: amLODIPine 10 MG TAB PO (08:03)
[2019-03-10] MEDS: Losartan 50 MG TAB 100 MG PO (08:03)
[2019-03-10] MEDS: Budesonide/Formoterol 160/4.5 6 GM 60 PUFF INH IH ×2 (08:08→19:39)
[2019-03-10] MEDS: Tiotropium Bromide-Respimat 10 PUFF INH IH (08:11)
[2019-03-10 08:25] LABS: Ferritin 188 ng/mL (8-388)
[2019-03-10 08:26] LABS: Hemoglobin A1C 5.8 % (4.5-6.2)
[2019-03-10 09:42] LABS: Anisocytosis 1+; Diff Comment RBC Morph Reviewed; Hypochromasia 2+; Polychromasia Present
[2019-03-10] MEDS: POTASSIUM CHLORIDE 20 MEQ, POTASSIUM CHLORIDE 10 MEQ 30 MEQ PO (10:22)
--- NOTE | 2019-03-10 13:12 | DI.MRI_ITS ---
SYMPTOM/DIAGNOSIS: ABD PAIN, TRANSAMINITIS, S/P CHOLECYSTECTOMY MRCP: MRCP was performed according to the usual protocol. Incidental note is made of left renal cyst. No hepatic or pancreatic signal abnormality is seen. No adenopathy in the visualized portion of the abdomen. The patient has had a prior cholecystectomy. There is artifact from metallic clips in the gallbladder fossa. Intra and extrahepatic ducts are mildly dilated with common duct measuring about 12 mm. in diameter, this is at the upper limits of normal for post cholecystectomy patient. Pancreatic duct is non dilated. CONCLUSION: Borderline dilatation of common bile duct, no definite intraluminal filling defect identified by MRCP criteria. If there is clinical or laboratory evidence of biliary obstruction such as rising bilirubin levels, additional evaluation with ERCP may be considered to evaluate for a lesion of the distal common duct.
--- NOTE | 2019-03-10 13:19 | CHAPLAIN ---
Angela was sitting up in bed when I visited. She told me about being at he daughter's in [place], visiting her daughter's new place, and ending up in the ED here. She is from [place]. Angela said she is waiting to hear from the doctor about results from her tests. She hasn't eaten since Sunday, so she's hoping to get to eat after her next test today. Angela was pleasant and easily engaged in a conversation.
--- NOTE | 2019-03-10 16:08 | W.PM.PROGNOT ---
Date of Service Date of service: 03/10/19 Time of Service: 16:08 Assessment and Plan (1) Diarrhea: Current visit: Yes Status: Acute History of Mesenteric Ischemia and C.Diff, currently with CTA negative for occlusion and C.Diff with Ag+, Toxin negative. - Await C.Diff PCR - for now continue IV Flagyl and PO Vancomycin. - Apparent Jejunal wall thickening on original CT scan is no longer present on repeat CT. - Work-up elevated LFTs as below. - Continue Supportive care, and await stool cultures. (2) Transaminitis: Current visit: Yes Status: Acute Unknown etiology, but appears to be have worsening values this morning. - Hx Cholecystectomy, and currently with minimally elevated Alk Phos and essentially normal liver u/s and MRCP - doubt choledocholithiasis or ascending cholangitis. - Reports no new medications over the last 2-3 months, and denies any over the counter products. Denies any EtOH use or abuse. - Acute hepatitis panel ordered and pending. Transferrin saturation <45% and not indicative of Hemochromatosis. Will add FATUMA, Anti-SM Ab's, and SPEP. Will also obtain TSH. - Monitor closely and continue supportive care. Low threshold for transfer if worsening symptoms. Discussed with GI at [facility] who agrees with above plan. (3) Diabetes mellitus: Current visit: Yes Status: Chronic Continue with basal insulin and sliding scale, but monitor sugars closely as patient's diet is altered currently given her GI complaints. (4) COPD (chronic obstructive pulmonary disease): Current visit: Yes Status: Chronic Appears quiescent. Continue IGC/LABA, Tiotropium, and Daliresp. Duoneb prn. Qualifiers: COPD type: unspecified COPD Qualified Code(s): J44.9 - Chronic obstructive pulmonary disease, unspecified (5) DVT prophylaxis: Current visit: Yes Status: Acute SC Enoxaparin. Also on PPI therapy, which will be discontinued given current diarrhea. Subjective Interval history since last seen: 58-year-old woman with a prior history of IDDM and COPD, admitted from [facility] Emergency Department with reported diarrhea and evidence of elevated LFTs. Mrs. Ivy has a Past Medical History significant for COPD on home O2, IDDM, Chronic B12 and Iron Deficient Anemia, prior Temporal Arteritis with subsequent left eye blindness, and a prior septic joint. She has a prior history of Cholecystectomy, and reports a previous C.Diff infection in the setting of antibiotic use. 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 She presented to the ED with complaints of a 2 month history of nausea and vomiting, now with acute onset of RUQ pain and significant watery diarrhea. Work-up in the ED was significant for a mild anemia, elevated platelet count, and mildly elevated Creatinine. However, she was also noted to have a transaminitis, with an AST in the 700's and ALT of 268, with minimally elevated Alk Phos and essentially normal Bilirubin. Her lipase was also checked and normal. C. Diff returned with Ag+, but toxin negative. Initial non-contrast CT of the abdomen showed a focal jejunal wall thickening of uncertain etiology. Given her lab findings she was admitted for further evaluation and treatment. Following admission Mrs. Castanon symptoms have not abated. Given her history of ischemic colitis a CTA of the abdomen was obtained which showed severe atheromatous disease but no acute occlusion. By morning Mrs. Castanon RUQ pain continued to persist, and her LFTs actually worsened from time of admission, but with a continued normal bilirubin - Liver ultrasound and MRCP were obtained, both essentially negative. No other events reported overnight. She remains afebrile. Exam Narrative Exam Narrative: General: Patient appears comfortable, AAOX3, NAD Neck: Supple CV: Regular, nontachycardic, S1S2, No rubs, murmurs, or gallops. Pulmonary: Clear to auscultation bilaterally, no crackles, wheezing, or rhonchi Abdomen: + Bowel Sounds, soft, nondistended but obese in contour, point tenderness in RUQ. Vascular: Mild non-pitting b/l lower extremity edema Psych: Normal mood and affect. Objective Objective Clinical Data: Abnormal lab results 03/09/19 03/09/19 03/09/19 Range/Units 16:02 16:02 16:02 WBC (4.4-10.8) k/cumm RBC 3.51 L (4.00-5.20) m/cumm Hgb 10.0 L (12.0-15.5) g/dL Hct 32.6 L (36.0-46.0) % MCHC 30.7 L (32.0-36.0) g/dL RDW 15.7 H (11.7-14.6) % Plt Count 621 H (130-400) x1000/uL Absolute Neutrophils 7.15 H (1.2-6.7) k/cumm Absolute Lymphocytes (1.2-3.4) k/cumm Absolute Monocytes 0.72 H (0.11-0.7) k/cumm BUN 28 H (7-18) mg/dL Creatinine 1.46 H (0.55-1.02) mg/dL Glucose 112 H (70-100) mg/dL Lactate 1.5 H (0.6-1.4) mmol/L Magnesium 1.7 L (1.8-2.4) mg/dL Conjugated Bilirubin (0.00-0.20) mg/dL AST 707 H (15-37) U/L ALT 268 H (12-78) U/L Alkaline Phosphatase 230 H (46-116) U/L Albumin (3.4-5.0) g/dL Urine Blood (Negative) Ur Leukocyte Esterase (Negative) Urine RBC (0-2) 03/09/19 03/10/19 03/10/19 Range/Units 23:25 06:25 06:25 WBC 4.01 L D (4.4-10.8) k/cumm RBC 3.20 L (4.00-5.20) m/cumm Hgb 9.1 L (12.0-15.5) g/dL Hct 29.7 L (36.0-46.0) % MCHC 30.6 L (32.0-36.0) g/dL RDW 15.7 H (11.7-14.6) % Plt Count 548 H (130-400) x1000/uL Absolute Neutrophils (1.2-6.7) k/cumm Absolute Lymphocytes 1.01 L (1.2-3.4) k/cumm Absolute Monocytes (0.11-0.7) k/cumm BUN 19 H D (7-18) mg/dL Creatinine 1.22 H (0.55-1.02) mg/dL Glucose 101 H (70-100) mg/dL Lactate (0.6-1.4) mmol/L Magnesium 2.6 H (1.8-2.4) mg/dL Conjugated Bilirubin 0.30 H (0.00-0.20) mg/dL AST 1247 H (15-37) U/L ALT 645 H (12-78) U/L Alkaline Phosphatase 314 H (46-116) U/L Albumin 2.9 L (3.4-5.0) g/dL Urine Blood Trace-intact H (Negative) Ur Leukocyte Esterase Small H (Negative) Urine RBC 3-5 H (0-2) Vital Signs Temperature 36.8 C 03/10/19 14:51 Temperature Source Tympanic 03/10/19 14:51 Pulse 81 03/10/19 14:51 Pulse Rhythm Regular 03/10/19 15:42 Pulse 84 03/09/19 18:10 Respiratory Rate 17 03/10/19 14:51 Respiratory Effort 03/10/19 07:40 Respiratory Depth Normal 03/10/19 07:40 Respiratory Pattern Normal 03/10/19 07:40 Blood Pressure 125/75 03/10/19 14:51 Blood Pressure Mean 60 03/09/19 18:01 Blood Pressure Position Sitting 03/09/19 15:34 Pulse Oximetry 98 03/10/19 14:51 Oxygen Delivery Method Room Air 03/10/19 14:51 Oxygen Flow Rate 0 03/10/19 14:51 Pain Level 4 03/10/19 15:46 Comment 03/10/19 01:05 Intake & Output 03/09/19 03/10/19 03/10/19 23:59 11:59 23:59 Intake Total 670 / 670 2156.25 / 2156.25 Balance 670 / 670 2156.25 / 2156.25 Weight 112.491 kg 110.9 kg Intake: IV 670 / 670 2156.25 / 2156.25 Other: Urine Color Pale Pale Yellow Yellow Urine Appearance Cloudy Clear Urine Odor None None Voiding Methods Toilet Toilet Laboratory Results WBC 4.01 k/cumm (4.4-10.8) L D 03/10/19 06:25 RBC 3.20 m/cumm (4.00-5.20) L 03/10/19 06:25 Hgb 9.1 g/dL (12.0-15.5) L 03/10/19 06:25 Hct 29.7 % (36.0-46.0) L 03/10/19 06:25 MCV 92.8 fL (80-95) 03/10/19 06:25 MCH 28.4 pg (27.0-33.0) 03/10/19 06:25 MCHC 30.6 g/dL (32.0-36.0) L 03/10/19 06:25 RDW 15.7 % (11.7-14.6) H 03/10/19 06:25 Plt Count 548 x1000/uL (130-400) H 03/10/19 06:25 MPV 9.2 fL (8.0-11.0) 03/10/19 06:25 Immature Gran % 0.2 03/10/19 06:25 60.2 03/10/19 06:25 25.2 03/10/19 06:25 11.2 03/10/19 06:25 2.5 03/10/19 06:25 0.7 03/10/19 06:25 Absolute Neutrophils 2.41 k/cumm (1.2-6.7) 03/10/19 06:25 Absolute Lymphocytes 1.01 k/cumm (1.2-3.4) L 03/10/19 06:25 Absolute Monocytes 0.45 k/cumm (0.11-0.7) 03/10/19 06:25 Absolute Eosinophils 0.10 k/cumm (0.0-0.7) 03/10/19 06:25 Absolute Basophils 0.03 k/cumm (0.0-0.2) 03/10/19 06:25 Rbc morph reviewed 03/10/19 06:25 RBC Morphology See below 03/10/19 06:25 Present 03/10/19 06:25 2+ 03/10/19 06:25 1+ 03/10/19 06:25 Sodium 142 mmol/L (136-145) 03/10/19 06:25 Potassium 3.7 mmol/L (3.5-5.1) 03/10/19 06:25 Chloride 104 mmol/L (98-107) 03/10/19 06:25 Carbon Dioxide 29.4 mmol/L (21.0-32.0) 03/10/19 06:25 8.6 mmol/L (3-11) 03/10/19 06:25 BUN 19 mg/dL (7-18) H D 03/10/19 06:25 1.22 mg/dL (0.55-1.02) H 03/10/19 06:25 44.96 (mL/min/1.73m2) 03/10/19 06:25 Glucose 101 mg/dL (70-100) H 03/10/19 06:25 5.8 % (4.5-6.2) 03/10/19 06:25 0.6 mmol/L (0.6-1.4) 03/09/19 21:25 Calcium 8.6 mg/dL (8.5-10.1) 03/10/19 06:25 Magnesium 2.6 mg/dL (1.8-2.4) H 03/10/19 06:25 Iron 60 ug/dL (50-175) 03/10/19 06:25 TIBC 300 ug/dL (250-450) 03/10/19 06:25 Transferrin % Sat 20 % (15-50) 03/10/19 06:25 188 ng/mL (8-388) 03/10/19 06:25 0.6 mg/dL (0.2-1.0) 03/10/19 06:25 0.30 mg/dL (0.00-0.20) H 03/10/19 06:25 AST 1247 U/L (15-37) H 03/10/19 06:25 ALT 645 U/L (12-78) H 03/10/19 06:25 314 U/L (46-116) H 03/10/19 06:25 < 0.05 ng/mL (0.00-0.06) 03/09/19 16:02 7.0 g/dL (6.4-8.2) 03/10/19 06:25 2.9 g/dL (3.4-5.0) L 03/10/19 06:25 118 U/L (73-393) 03/09/19 16:02 Yellow (Yellow) 03/09/19 23:25 Sl cloudy (Clear) 03/09/19 23:25 5.0 (5-8) 03/09/19 23:25 Ur Specific [place] <= 1.005 (1.005-1.025) 03/09/19 23:25 Negative mg/dL (Negative) 03/09/19 23:25 Negative mg/dL (Negative) 03/09/19 23:25 Trace-intact (Negative) H 03/09/19 23:25 Negative (Negative) 03/09/19 23:25 Negative (Negative) 03/09/19 23:25 0.2 EU/dL (Up TO 0.2) 03/09/19 23:25 Ur Leukocyte Esterase Small (Negative) H 03/09/19 23:25 3-5 (0-2) H 03/09/19 23:25 3-5 HPF (0-5) 03/09/19 23:25 Ur Epithelial Cells Many HPF (Negative) 03/09/19 23:25 Negative HPF (Negative) 03/09/19 23:25 Few HPF (Negative) 03/09/19 23:25 Negative LPF (Negative) 03/09/19 23:25 Negative (Negative) 03/09/19 23:25 Ur Culture Indicated? No/sq. contamination 03/09/19 23:25 Negative mg/dL (Negative) 03/09/19 23:25 Hepatitis A IgM Ab Cancelled 03/09/19 Unknown Hep Bs Antigen Cancelled 03/09/19 Unknown Hep B Core Total Ab Cancelled 03/09/19 Unknown Cancelled 03/09/19 Unknown
--- NOTE | 2019-03-10 16:34 | PHARADMIT ---
Addendum entered by Carmen Ruffin 03/13/19 11:20: Pharmacy Note Subjective pt looks better but is still having diarrhea per morning report Objective VS okay mag-1.6 SCr-1.06 h/h-9.7/32.4 AST/ALT-improving alkphos(improving) Assessment IV magnesium replacement given PO vanco and IV metronidazole continue (day 3) acute hepatits panel negative per progress note Plan continue to watch VS, labs and for med changes. Watch for change to PO metronidazole Addendum entered by Fany Mae 03/12/19 14:13: Pharmacy Note Subjective pt with CDIFF, Patient is improving, stools not as frequent Objective vs ok, FS 88, Assessment PO vanco and IV metronidazole continue day 2 Plan Acute hepatitis panel pending for elevated LFT's with unkwn etiology Addendum entered by Tatianna Mccartney 03/11/19 14:33: Pharmacy Note Subjective Patient is improving, stools not as frequent Objective AST/ALT 276/393 (trending down), Mag 1.6 Assessment Acute hepatitis panel ordered and pending for elevated LFT's with unkwn etiology Plan Continue IV flagyl and PO Vanco Original Note: Admission Pharmacy Clinical Review enteritis, possible C Diff, transaminitis, chronic NV Code Status Full Code Current Weight 110.9 kg Renally Cleared and Narrow Therapeutic Index Meds Crcl ~ 58.7 mL/min using adjusted body weight current meds okay QTc Value / Action Taken n/a BP Control, Fever BP 125/75 afebrile Electrolytes reviewed mag 2.6 DVT Prophylaxis enoxaparin Opiate Usage / Scheduled Bowel Regimen Ordered caroline and prn/no Plt/SCr for Heparin / Enoxaparin plt 548 SCr 1.22 INR for Warfarin n/a H/H stable, WBC/Bands h/h 9.1/29.7 wbc 4.01 Antibiotic appropriateness IV metronidazole and PO vanco Cultures and Sensitivities stool occult blood negative C. Diff- antigen was positive, toxin was negative Surgical ABX d/c within 24 hr n/a DM control / Insulin Dosing BG 101 scheduled glargine, scheduled and sliding scale aspart Heart Failure (Check EF%) (GORGE's, B-Block, Diuretics) amlodipine, hydrochlorothiazide, losartan, metoprolol IV to PO Switch n/a Home Meds Reviewed -dicyclomine may enhance the anticholinergic effects of tiotropium -multiple MALTED MILK MIXER depressants: tramadol, lorazepam Home Meds Not Ordered bupropion, chlorthalidone, dexlansoprazole, dicyclomine, advair, metformin Comments watch mag level tomorrow as pt has PO mag scheduled watch for C.Diff PCR results
[2019-03-10] MEDS: Insulin Aspart 300 UNITS/3 ML PEN SC (17:05)
[2019-03-10] MEDS: MORPHine 2 MG/ML SYR IVP (17:06)
[2019-03-10 21:38] LABS: TSH 0.79 uIU/mL (0.36-3.74)
[2019-03-10 22:23] LABS: Specimen Description Feces
[2019-03-11] VITALS (10 sets, daily range): BP systolic 125–154; BP diastolic 53–88; PULSE 50–94; RESP 8–20; TEMP 36.2–37; O2SAT 92–99
[2019-03-11] MEDS: Vancomycin 125 MG CAP 500 MG PO ×4 (00:03→18:33)
[2019-03-11 00:50] LABS: Lactate 0.6 mmol/L (0.6-1.4)
[2019-03-11] MEDS: metroNIDAZOLE 500 MG/100 ML BAG 100 MG IVPB ×4 (02:05→20:28)
[2019-03-11] MEDS: Normal Saline 1,000 ML 125 ML IV (02:09)
[2019-03-11] MEDS: Normal Saline Flush 10 ML SYR IVP ×2 (02:09→20:26)
[2019-03-11 06:56] LABS: Abs Immature Grans 0.01 k/cumm (0.0-0.09); Absolute Basophil Count 0.04 k/cumm (0.0-0.2); Absolute Lymphocyte Count 1.36 k/cumm (1.2-3.4); Absolute Monocyte Count 0.47 k/cumm (0.11-0.7); Absolute Neutrophil Count 3.97 k/cumm (1.2-6.7); Basophils % 0.7; Eosinophils % 4.9; HCT 32.7 % (36.0-46.0); HGB 9.8 g/dL (12.0-15.5); Immature Grans % 0.2; Lymphocytes % 22.1; Mean Corpuscular Hemoglobin 27.9 pg (27.0-33.0); Mean Corpuscular Volume 93.2 fL (80-95); Monocytes % 7.6; Neutrophils % 64.5; Platelet Count 556 x1000/uL (130-400); RBC 3.51 m/cumm (4.00-5.20); White Blood Cell Count 6.15 k/cumm (4.4-10.8)
[2019-03-11 07:22] LABS: ALT 393 U/L (12-78); AST 276 U/L (15-37); Albumin 3.2 g/dL (3.4-5.0); Alkaline Phosphatase 289 U/L (46-116); Anion Gap 8.8 mmol/L (3-11); BUN 8 mg/dL (7-18); Bilirubin, Total 0.2 mg/dL (0.2-1.0); CO2 30.2 mmol/L (21.0-32.0); CREATININE 0.93 mg/dL (0.55-1.02); Calcium 9.2 mg/dL (8.5-10.1); Chloride 104 mmol/L (98-107); Glucose 92 mg/dL (70-100); Magnesium 1.6 mg/dL (1.8-2.4); Potassium 3.9 mmol/L (3.5-5.1); Sodium 143 mmol/L (136-145); Total Protein 7.3 g/dL (6.4-8.2)
[2019-03-11] MEDS: Enoxaparin 40 MG/0.4 ML SYR SC (07:56)
[2019-03-11] MEDS: Cholecalciferol (Vitamin D3) 1,000 UNIT TAB 5000 UNITS PO (07:57)
[2019-03-11] MEDS: Clopidogrel 75 MG TAB PO (07:57)
[2019-03-11] MEDS: Magnesium Oxide 400 MG TAB PO ×2 (07:57→20:24)
[2019-03-11] MEDS: hydroCHLOROthiazide 12.5 MG TAB PO (07:57)
[2019-03-11] MEDS: Aspirin 81 MG CHEW PO ×2 (07:57→20:25)
[2019-03-11] MEDS: Losartan 50 MG TAB 100 MG PO (07:57)
[2019-03-11] MEDS: DULoxetine 30 MG CAP 60 MG PO (07:58)
[2019-03-11] MEDS: amLODIPine 10 MG TAB PO (07:58)
[2019-03-11] MEDS: Budesonide/Formoterol 160/4.5 6 GM 60 PUFF INH IH ×2 (08:04→20:26)
[2019-03-11] MEDS: Tiotropium Bromide-Respimat 10 PUFF INH IH (08:04)
[2019-03-11 08:18] LABS: Result Positive
[2019-03-11] MEDS: Insulin Aspart 300 UNITS/3 ML PEN SC ×3 (08:52→17:17)
[2019-03-11 11:06] LABS: Hepatitis A Antibody IgM Negative (NEGAT); Hepatitis B Core Antibody Negative (NEGAT); Hepatitis B surface Ag Negative (NEGAT); Hepatitis C Ab w Rflx HCV PCR Negative (NEGAT)
[2019-03-11] MEDS: Potassium Chloride 10 MEQ TABCR PO (11:13)
[2019-03-11] MEDS: MAGNESIUM SULFATE 2 GM/50 ML BAG IVPB (11:14)
[2019-03-11] MEDS: Albuterol/Ipratropium 3 ML UPD VIAL UPD (12:21)
[2019-03-11 12:59] LABS: Campylobacter PCR SEE COMMENTS; Salmonella PCR SEE COMMENTS; Shiga Toxin PCR SEE COMMENTS; Shigella/Enteroinvasive Ecoli SEE COMMENTS
--- NOTE | 2019-03-11 13:36 | CMPROGNOTE_ITS ---
- If Service Date Differs Date of service: 03/11/19 Time of Service: 13:36 Care Management Progress Note S/O:Angela was sitting up in bed when CM met with her. She was eating lunch and smiling and stated she was feeling much better. Today was the first time she had solid food and expressed concern that her stomach was gurgling and she felt like she might have diarrhea. She said that she hoped to be able to go home tomorrow if she tolerates eating and her tests don't reveal any serious abnormalities. A: Angela is a 58 year old woman admitted to [facility] on 03/10/19 with enteritis P: Angela will be discharged home with a resumption of services in her community of [place], [place]. She currently has caregivers 4 days a week and MOW.
--- NOTE | 2019-03-11 14:19 | W.PM.PROGNOT ---
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 - Continue IV Flagyl and PO Vancomycin - appears mildly improved today. - Apparent Jejunal wall thickening on original CT scan is no longer present on repeat CT. - Work-up elevated LFTs as below. - Continue Supportive care. (2) Transaminitis: Current visit: Yes Status: Acute Unknown etiology, but appears to be improving this morning. - Hx Cholecystectomy, and currently with normal bilirubin, minimally elevated Alk Phos and essentially normal liver u/s and MRCP - doubt choledocholithiasis or ascending cholangitis. - Reports no new medications over the last 2-3 months, and denies any over the counter products. Denies any EtOH use or abuse. - Acute hepatitis panel ordered and pending. Transferrin saturation <45% and not indicative of Hemochromatosis. Currently awaiting FATUMA, Anti-SM Ab's, and SPEP. TSH checked and normal. (3) Diabetes mellitus: Current visit: Yes Status: Chronic Continue with basal insulin and sliding scale, but monitor sugars closely as patient's diet is altered currently given her GI complaints. (4) COPD (chronic obstructive pulmonary disease): Current visit: Yes Status: Chronic Appears quiescent. Continue IGC/LABA, Tiotropium, and Daliresp. Duoneb prn. Qualifiers: COPD type: unspecified COPD Qualified Code(s): J44.9 - Chronic obstructive pulmonary disease, unspecified (5) DVT prophylaxis: Current visit: Yes Status: Acute SC Enoxaparin. Also on PPI therapy, which was discontinued given current diarrhea - start H2 lori. Subjective Interval history since last seen: 58-year-old woman with a prior history of IDDM and COPD, admitted from [facility] Emergency Department with reported diarrhea and evidence of elevated LFTs. Mrs. 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 She has a prior history of Cholecystectomy, and reports a previous C.Diff infection in the setting of antibiotic use. 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 She presented to the ED with complaints of a 2 month history of nausea and vomiting, now with acute onset of RUQ pain and significant watery diarrhea. Work-up in the ED was significant for a mild anemia, elevated platelet count, and mildly elevated Creatinine. However, she was also noted to have a transaminitis, with an AST in the 700's and ALT of 268, with minimally elevated Alk Phos and essentially normal Bilirubin. Her lipase was also checked and normal. C. Diff returned with Ag+, but toxin negative. Initial non-contrast CT of the abdomen showed a focal jejunal wall thickening of uncertain etiology. Given her lab findings she was admitted for further evaluation and treatment. Following admission Mrs. Ivy underwent further testing with CTA of the abdomen, RUQ u/s, and MRCP - all essentially negative for acute pathology. By this morning the patient's symptoms have improved, and she reports that while she continues to have watery diarrhea, it is not as frequent or as severe as prior - her C.Diff by PCR has returned postive. Her LFTs had initially worsened but are now improving, and her creatinine has normalized. No other events reported overnight. She remains afebrile. Exam Narrative Exam Narrative: General: Patient appears comfortable, AAOX3, NAD Neck: Supple CV: Regular, nontachycardic, S1S2, No rubs, murmurs, or gallops. Pulmonary: Clear to auscultation bilaterally, no crackles, wheezing, or rhonchi Abdomen: + Bowel Sounds, soft, nondistended but obese in contour, point tenderness in RUQ improved. Vascular: Mild non-pitting b/l lower extremity edema Psych: Normal mood and affect. Objective Objective Clinical Data: Abnormal lab results 03/09/19 03/11/19 03/11/19 Range/Units 19:45 06:20 06:20 RBC 3.51 L (4.00-5.20) m/cumm Hgb 9.8 L (12.0-15.5) g/dL Hct 32.7 L (36.0-46.0) % MCHC 30.0 L (32.0-36.0) g/dL RDW 16.0 H (11.7-14.6) % Plt Count 556 H (130-400) x1000/uL Magnesium 1.6 L (1.8-2.4) mg/dL AST 276 H (15-37) U/L ALT 393 H (12-78) U/L Alkaline Phosphatase 289 H (46-116) U/L Albumin 3.2 L (3.4-5.0) g/dL Stl C.difficile Tox PCR Positive A Vital Signs Temperature 36.7 C 03/11/19 11:38 Temperature Source Tympanic 03/11/19 11:38 Pulse 89 03/11/19 12:49 Pulse Rhythm Regular 03/11/19 07:30 Pulse 84 03/09/19 18:10 Respiratory Rate 18 03/11/19 12:49 Respiratory Effort Non-Labored 03/11/19 07:30 Respiratory Depth Normal 03/11/19 07:30 Respiratory Pattern Normal 03/11/19 07:30 Blood Pressure 126/72 03/11/19 11:38 Blood Pressure Mean 60 03/09/19 18:01 Blood Pressure Position Sitting 03/09/19 15:34 Pulse Oximetry 99 03/11/19 12:49 Oxygen Delivery Method Nasal Cannula 03/11/19 12:21 Oxygen Flow Rate 3 03/11/19 12:21 Pain Level 0 03/11/19 11:38 Comment 03/10/19 01:05 Intake & Output 03/10/19 03/11/19 03/11/19 23:59 11:59 23:59 Intake Total 1440 / 3596.25 2953.750 / 2953.750 Balance 1440 / 3596.25 2953.750 / 2953.750 Weight 110.7 kg Intake: IV 1200 / 3356.25 2073.750 / 2073.750 Oral 240 / 240 880 / 880 Other: Urine Color Pale Yellow Urine Appearance Clear Clear Urine Odor None Voiding Methods Toilet Toilet Laboratory Results WBC 6.15 k/cumm (4.4-10.8) D 03/11/19 06:20 RBC 3.51 m/cumm (4.00-5.20) L 03/11/19 06:20 Hgb 9.8 g/dL (12.0-15.5) L 03/11/19 06:20 Hct 32.7 % (36.0-46.0) L 03/11/19 06:20 MCV 93.2 fL (80-95) 03/11/19 06:20 MCH 27.9 pg (27.0-33.0) 03/11/19 06:20 MCHC 30.0 g/dL (32.0-36.0) L 03/11/19 06:20 RDW 16.0 % (11.7-14.6) H 03/11/19 06:20 Plt Count 556 x1000/uL (130-400) H 03/11/19 06:20 MPV 9.0 fL (8.0-11.0) 03/11/19 06:20 Immature Gran % 0.2 03/11/19 06:20 64.5 03/11/19 06:20 22.1 03/11/19 06:20 7.6 03/11/19 06:20 4.9 03/11/19 06:20 0.7 03/11/19 06:20 Absolute Neutrophils 3.97 k/cumm (1.2-6.7) 03/11/19 06:20 Absolute Lymphocytes 1.36 k/cumm (1.2-3.4) 03/11/19 06:20 Absolute Monocytes 0.47 k/cumm (0.11-0.7) 03/11/19 06:20 Absolute Eosinophils 0.30 k/cumm (0.0-0.7) 03/11/19 06:20 Absolute Basophils 0.04 k/cumm (0.0-0.2) 03/11/19 06:20 Rbc morph reviewed 03/10/19 06:25 RBC Morphology See below 03/10/19 06:25 Present 03/10/19 06:25 2+ 03/10/19 06:25 1+ 03/10/19 06:25 Sodium 143 mmol/L (136-145) 03/11/19 06:20 Potassium 3.9 mmol/L (3.5-5.1) 03/11/19 06:20 Chloride 104 mmol/L (98-107) 03/11/19 06:20 Carbon Dioxide 30.2 mmol/L (21.0-32.0) 03/11/19 06:20 8.8 mmol/L (3-11) 03/11/19 06:20 BUN 8 mg/dL (7-18) D 03/11/19 06:20 0.93 mg/dL (0.55-1.02) 03/11/19 06:20 >= 60.00 (mL/min/1.73m2) 03/11/19 06:20 Glucose 92 mg/dL (70-100) 03/11/19 06:20 5.8 % (4.5-6.2) 03/10/19 06:25 0.6 mmol/L (0.6-1.4) 03/11/19 00:35 Calcium 9.2 mg/dL (8.5-10.1) 03/11/19 06:20 Magnesium 1.6 mg/dL (1.8-2.4) L 03/11/19 06:20 Iron 60 ug/dL (50-175) 03/10/19 06:25 TIBC 300 ug/dL (250-450) 03/10/19 06:25 Transferrin % Sat 20 % (15-50) 03/10/19 06:25 188 ng/mL (8-388) 03/10/19 06:25 0.2 mg/dL (0.2-1.0) 03/11/19 06:20 0.30 mg/dL (0.00-0.20) H 03/10/19 06:25 AST 276 U/L (15-37) H 03/11/19 06:20 ALT 393 U/L (12-78) H 03/11/19 06:20 289 U/L (46-116) H 03/11/19 06:20 < 0.05 ng/mL (0.00-0.06) 03/09/19 16:02 7.3 g/dL (6.4-8.2) 03/11/19 06:20 3.2 g/dL (3.4-5.0) L 03/11/19 06:20 118 U/L (73-393) 03/09/19 16:02 TSH 0.79 uIU/mL (0.36-3.74) 03/10/19 20:08 Yellow (Yellow) 03/09/19 23:25 Sl cloudy (Clear) 03/09/19 23:25 5.0 (5-8) 03/09/19 23:25 Ur Specific [place] <= 1.005 (1.005-1.025) 03/09/19 23:25 Negative mg/dL (Negative) 03/09/19 23:25 Negative mg/dL (Negative) 03/09/19 23:25 Trace-intact (Negative) H 03/09/19 23:25 Negative (Negative) 03/09/19 23:25 Negative (Negative) 03/09/19 23:25 0.2 EU/dL (Up TO 0.2) 03/09/19 23:25 Ur Leukocyte Esterase Small (Negative) H 03/09/19 23:25 3-5 (0-2) H 03/09/19 23:25 3-5 HPF (0-5) 03/09/19 23:25 Ur Epithelial Cells Many HPF (Negative) 03/09/19 23:25 Negative HPF (Negative) 03/09/19 23:25 Few HPF (Negative) 03/09/19 23:25 Negative LPF (Negative) 03/09/19 23:25 Negative (Negative) 03/09/19 23:25 Ur Culture Indicated? No/sq. contamination 03/09/19 23:25 Negative mg/dL (Negative) 03/09/19 23:25 Stl C.difficile Tox PCR Positive A 03/09/19 19:45 IgG Cancelled 03/10/19 16:58 IgA Cancelled 03/10/19 16:58 IgM Cancelled 03/10/19 16:58 C.difficile Tox Source Feces 03/09/19 19:45 Hepatitis A IgM Ab Cancelled 03/09/19 Unknown Hep Bs Antigen Cancelled 03/09/19 Unknown Hep B Core Total Ab Cancelled 03/09/19 Unknown Cancelled 03/09/19 Unknown
[2019-03-11] MEDS: Metoprolol CR 25 MG TABCR PO (20:23)
[2019-03-11] MEDS: traMADol 50 MG TAB PO (20:24)
[2019-03-11] MEDS: LORazepam 1 MG TAB PO (20:24)
[2019-03-11] MEDS: Insulin Glargine 300 UNITS/3 ML PEN 16 UNITS SC (20:25)
[2019-03-12] VITALS (7 sets, daily range): BP systolic 125–154; BP diastolic 59–75; PULSE 71–82; RESP 16–20; TEMP 36.3–36.9; O2SAT 95–99
[2019-03-12] MEDS: Vancomycin 125 MG CAP 500 MG PO ×4 (00:11→17:41)
[2019-03-12] MEDS: Normal Saline Flush 10 ML SYR IVP ×4 (01:44→18:40)
[2019-03-12] MEDS: metroNIDAZOLE 500 MG/100 ML BAG 100 MG IVPB ×4 (01:47→20:03)
[2019-03-12] MEDS: Ondansetron 4 MG/2 ML VIAL IVP ×2 (07:06→18:41)
[2019-03-12 07:15] LABS: Abs Immature Grans 0.02 k/cumm (0.0-0.09); Absolute Basophil Count 0.04 k/cumm (0.0-0.2); Absolute Eosinophil Count 0.33 k/cumm (0.0-0.7); Absolute Monocyte Count 0.56 k/cumm (0.11-0.7); Absolute Neutrophil Count 4.67 k/cumm (1.2-6.7); Basophils % 0.6; Eosinophils % 4.6; HCT 31.6 % (36.0-46.0); HGB 9.6 g/dL (12.0-15.5); Immature Grans % 0.3; Lymphocytes % 21.1; Mean Corp. HGB Concentration 30.4 g/dL (32.0-36.0); Mean Corpuscular Hemoglobin 28.2 pg (27.0-33.0); Mean Corpuscular Volume 92.9 fL (80-95); Mean Platelet Volume 9.2 fL (8.0-11.0); Monocytes % 7.9; Neutrophils % 65.5; Platelet Count 551 x1000/uL (130-400); RBC Distribution Width 15.8 % (11.7-14.6); White Blood Cell Count 7.12 k/cumm (4.4-10.8)
[2019-03-12 07:21] LABS: ALT 254 U/L (12-78); AST 86 U/L (15-37); Albumin 3.1 g/dL (3.4-5.0); Alkaline Phosphatase 240 U/L (46-116); Anion Gap 6.4 mmol/L (3-11); BUN 11 mg/dL (7-18); Bilirubin, Total 0.2 mg/dL (0.2-1.0); CO2 31.6 mmol/L (21.0-32.0); CREATININE 1.07 mg/dL (0.55-1.02); Calcium 9.7 mg/dL (8.5-10.1); Chloride 102 mmol/L (98-107); Estimated GFR 52.31 (mL/min/1.73m2); Glucose 119 mg/dL (70-100); Magnesium 1.6 mg/dL (1.8-2.4); Potassium 4.1 mmol/L (3.5-5.1); Sodium 140 mmol/L (136-145); Total Protein 7.3 g/dL (6.4-8.2)
[2019-03-12] MEDS: Budesonide/Formoterol 160/4.5 6 GM 60 PUFF INH IH ×2 (07:58→20:04)
[2019-03-12] MEDS: Tiotropium Bromide-Respimat 10 PUFF INH IH (08:07)
--- NOTE | 2019-03-12 08:07 | CMPROGNOTE_ITS ---
Care Management Progress Note S/O: CM received call from Adali at [facility] in [place], [place] requesting discharge planning updates. P#[phone], F#[phone]. Angela experienced increased nausea this morning and required IV Zofran, also continues to have diarrhea every few hours. CM continues to follow. 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 She will follow up with her PCP and plan of care as prescribed. CM will fax orders upon discharge and notify [employer] Tender of A location; [facility] in [place], [place]. P#[phone], F#[phone].
--- NOTE | 2019-03-12 08:07 | PDOC.CMPRO ---
Care Management Progress Note S/O: CM received call from Adali at [facility] in [place], [place] requesting discharge planning updates. P#[phone], F#[phone]. Angela experienced increased nausea this morning and required IV Zofran, also continues to have diarrhea every few hours. CM continues to follow. 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 She will follow up with her PCP and plan of care as prescribed. CM will fax orders upon discharge and notify [employer] Contact [employer]inter of A location; [facility] in [place], [place]. P#[phone], F#[phone].
[2019-03-12] MEDS: Cholecalciferol (Vitamin D3) 1,000 UNIT TAB 5000 UNITS PO (08:15)
[2019-03-12] MEDS: hydroCHLOROthiazide 12.5 MG TAB PO (08:16)
[2019-03-12] MEDS: DULoxetine 30 MG CAP 60 MG PO (08:16)
[2019-03-12] MEDS: Aspirin 81 MG CHEW PO ×2 (08:16→20:03)
[2019-03-12] MEDS: Clopidogrel 75 MG TAB PO (08:16)
[2019-03-12] MEDS: Magnesium Oxide 400 MG TAB PO ×2 (08:16→20:04)
[2019-03-12] MEDS: Losartan 50 MG TAB 100 MG PO (08:17)
[2019-03-12] MEDS: amLODIPine 10 MG TAB PO (08:17)
[2019-03-12] MEDS: Enoxaparin 40 MG/0.4 ML SYR SC (08:19)
[2019-03-12] MEDS: Insulin Aspart 300 UNITS/3 ML PEN SC ×3 (08:20→17:18)
--- NOTE | 2019-03-12 10:09 | W.INDIABCONS ---
Date of service: 03/12/19 Time of Service: 10:10 Diabetes Inpatient Consult DESCRIPTION/ASSESSMENT: Appreciate diabetes consult for Angela Ivy who is hospitalized with diarrhea caused by C Diff. A1c 5.8 Blood sugars here mostly low 100s or below with hypoglycemic episodes. She receives her usual 16u Lantus here as well as moderate insulin correction and 1 unit for 10grams carbohydrate. SHe states she felt a little funny when blood sugar 66mg/dl but it did not register as 'hypoglycemia' that needed treatment. Met with Angela and her daughter who cares for her mother. In addition to the Lantus she takes Metformin at home. Discussed blood sugars at home and she states she feels the craving to eat sugar often at home. She is on Prednisone at different times and they recognize this increases blood sugars dramatically. Unclear how this is managed. INTERVENTION: Discussed medication management given her low A1c; potential need for increasing blood sugar monitoring given her unawareness of hypoglycemia symptoms; sugar cravings. She may be able to stop mealtime dosing of insulin here, or to lower her basal insulin given her very tight glycemic control. PLAN: Will follow up regarding self management support prior to discharge Suggest a possible decrease in basal insulin at home if she finds blood sugars frequently low or need to eat candy to prevent hypoglycemia Suggest stopping carbohydrate associated insulin to see if blood sugars stay in a safer range during this hospitalization. Time Spent in Nutritional Counseling and Treatment: 15 minutes face to face
--- NOTE | 2019-03-12 11:06 | PGE_ITS ---
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 - Continue IV Flagyl and PO Vancomycin day #2 - appears mildly improved today. - Apparent Jejunal wall thickening on original CT scan is no longer present on repeat CT. - Work-up elevated LFTs as below. - Continue Supportive care. Stool cultures negative. (2) Transaminitis: Current visit: Yes Status: Acute Unknown etiology, but appears to be improving again this morning. - Hx Cholecystectomy, and currently with normal bilirubin, minimally elevated Alk Phos and essentially normal liver u/s and MRCP - doubt choledocholithiasis or ascending cholangitis. - Reports no new medications over the last 2-3 months, and denies any over the counter products. Denies any EtOH use or abuse. - Acute hepatitis panel negative. Transferrin saturation <45% and not indicative of Hemochromatosis. Currently awaiting FATUMA, Anti-SM Ab's, and SPEP. TSH checked and normal. (3) Diabetes mellitus: Current visit: Yes Status: Chronic Continue with basal insulin and sliding scale, but monitor sugars closely as patient's diet is altered currently given her GI complaints. (4) COPD (chronic obstructive pulmonary disease): Current visit: Yes Status: Chronic Appears quiescent. Continue IGC/LABA, Tiotropium, and Daliresp. Duoneb prn. Qualifiers: COPD type: unspecified COPD Qualified Code(s): J44.9 - Chronic obstructive pulmonary disease, unspecified (5) DVT prophylaxis: Current visit: Yes Status: Acute SC Enoxaparin. Also on PPI therapy, which was discontinued given current diarrhea and C.Diff - started H2 lori. Subjective Interval history since last seen: 58-year-old woman with a prior history of IDDM and COPD, admitted from [facility] Emergency Department with reported diarrhea and evidence of elevated LFTs. Mrs. 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 She has a history of Cholecystectomy, and reports a previous C.Diff infection in the setting of a ntibiotic use. 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 She presented to the ED with complaints of a 2 month history of nausea and vomiting, now with acute onset of RUQ pain and significant watery diarrhea. Work-up in the ED was significant for a mild anemia, elevated platelet count, and mildly elevated Creatinine. However, she was also noted to have a transaminitis, with an AST in the 700's and ALT of 268, with minimally elevated Alk Phos and essentially normal Bilirubin. Her lipase was also checked and normal. C. Diff returned with Ag+, but toxin negative. Initial non-contrast CT of the abdomen showed a focal jejunal wall thickening of uncertain etiology. Given her lab findings she was admitted for further evaluation and treatment, and initiated on antibiotic therapy for a potential C.Diff infection. Following admission Mrs. Ivy underwent further testing with CTA of the abdomen, RUQ u/s, and MRCP - all essentially negative for acute pathology. This morning the patient's symptoms have improved, and she reports that while she continues to have watery diarrhea, it is not as frequent or as severe as prior - her C.Diff by PCR has returned postive. Her LFTs continue to improve, and her creatinine remains improved. Hepatitis panel was checked and negative. No other events reported overnight. She remains afebrile. Exam Narrative Exam Narrative: General: Patient appears comfortable, AAOX3, NAD Neck: Supple CV: Regular, nontachycardic, S1S2, No rubs, murmurs, or gallops. Pulmonary: Clear to auscultation bilaterally, no crackles, wheezing, or rhonchi Abdomen: + Bowel Sounds, soft, nondistended but obese in contour, point tenderness in RUQ persists but is improved. Vascular: Mild non-pitting b/l lower extremity edema Psych: Normal mood and affect. Objective Objective Clinical Data: Abnormal lab results 03/12/19 03/12/19 Range/Units 06:20 06:20 RBC 3.40 L (4.00-5.20) m/cumm Hgb 9.6 L (12.0-15.5) g/dL Hct 31.6 L (36.0-46.0) % MCHC 30.4 L (32.0-36.0) g/dL RDW 15.8 H (11.7-14.6) % Plt Count 551 H (130-400) x1000/uL Creatinine 1.07 H (0.55-1.02) mg/dL Glucose 119 H (70-100) mg/dL Magnesium 1.6 L (1.8-2.4) mg/dL AST 86 H (15-37) U/L ALT 254 H (12-78) U/L Alkaline Phosphatase 240 H (46-116) U/L Albumin 3.1 L (3.4-5.0) g/dL Vital Signs Temperature 36.6 C 03/12/19 07:46 Temperature Source Tympanic 03/12/19 07:46 Pulse 73 03/12/19 07:46 Pulse Rhythm Regular 03/12/19 07:55 Pulse 84 03/09/19 18:10 Respiratory Rate 16 03/12/19 07:46 Respiratory Effort 03/12/19 07:55 Respiratory Depth Normal 03/12/19 07:55 Respiratory Pattern Normal 03/12/19 07:55 Blood Pressure 125/60 03/12/19 07:46 Blood Pressure Mean 60 03/09/19 18:01 Blood Pressure Position Sitting 03/09/19 15:34 Pulse Oximetry 99 03/12/19 07:46 Oxygen Delivery Method Nasal Cannula 03/12/19 07:46 Oxygen Flow Rate 3 03/12/19 07:46 Pain Level 0 03/12/19 03:13 Comment 03/10/19 01:05 Intake & Output 03/11/19 03/11/19 03/12/19 11:59 23:59 11:59 Intake Total 2953.750 / 4080.833 1127.083 / 4080.833 640 / 640 Balance 2953.750 / 4080.833 1127.083 / 4080.833 640 / 640 Weight 110.7 kg 110.4 kg Intake: IV 2073.750 / 2390.833 317.083 / 2390.833 100 / 100 Oral 880 / 1690 810 / 1690 540 / 540 Other: Urine Appearance Clear Clear Comment VOID X 2 FROM AFTER 0330 TIL NOW Stool Size Moderate Small Stool Characteristics Liquid Mucoid Brown Voiding Methods Toilet Toilet Toilet Laboratory Results WBC 7.12 k/cumm (4.4-10.8) 03/12/19 06:20 RBC 3.40 m/cumm (4.00-5.20) L 03/12/19 06:20 Hgb 9.6 g/dL (12.0-15.5) L 03/12/19 06:20 Hct 31.6 % (36.0-46.0) L 03/12/19 06:20 MCV 92.9 fL (80-95) 03/12/19 06:20 MCH 28.2 pg (27.0-33.0) 03/12/19 06:20 MCHC 30.4 g/dL (32.0-36.0) L 03/12/19 06:20 RDW 15.8 % (11.7-14.6) H 03/12/19 06:20 Plt Count 551 x1000/uL (130-400) H 03/12/19 06:20 MPV 9.2 fL (8.0-11.0) 03/12/19 06:20 Immature Gran % 0.3 03/12/19 06:20 65.5 03/12/19 06:20 21.1 03/12/19 06:20 7.9 03/12/19 06:20 4.6 03/12/19 06:20 0.6 03/12/19 06:20 Absolute Neutrophils 4.67 k/cumm (1.2-6.7) 03/12/19 06:20 Absolute Lymphocytes 1.50 k/cumm (1.2-3.4) 03/12/19 06:20 Absolute Monocytes 0.56 k/cumm (0.11-0.7) 03/12/19 06:20 Absolute Eosinophils 0.33 k/cumm (0.0-0.7) 03/12/19 06:20 Absolute Basophils 0.04 k/cumm (0.0-0.2) 03/12/19 06:20 Rbc morph reviewed 03/10/19 06:25 RBC Morphology See below 03/10/19 06:25 Present 03/10/19 06:25 2+ 03/10/19 06:25 1+ 03/10/19 06:25 Sodium 140 mmol/L (136-145) 03/12/19 06:20 Potassium 4.1 mmol/L (3.5-5.1) 03/12/19 06:20 Chloride 102 mmol/L (98-107) 03/12/19 06:20 Carbon Dioxide 31.6 mmol/L (21.0-32.0) 03/12/19 06:20 6.4 mmol/L (3-11) 03/12/19 06:20 BUN 11 mg/dL (7-18) 03/12/19 06:20 1.07 mg/dL (0.55-1.02) H 03/12/19 06:20 52.31 (mL/min/1.73m2) 03/12/19 06:20 Glucose 119 mg/dL (70-100) H 03/12/19 06:20 5.8 % (4.5-6.2) 03/10/19 06:25 0.6 mmol/L (0.6-1.4) 03/11/19 00:35 Calcium 9.7 mg/dL (8.5-10.1) 03/12/19 06:20 Magnesium 1.6 mg/dL (1.8-2.4) L 03/12/19 06:20 Iron 60 ug/dL (50-175) 03/10/19 06:25 TIBC 300 ug/dL (250-450) 03/10/19 06:25 Transferrin % Sat 20 % (15-50) 03/10/19 06:25 188 ng/mL (8-388) 03/10/19 06:25 0.2 mg/dL (0.2-1.0) 03/12/19 06:20 0.30 mg/dL (0.00-0.20) H 03/10/19 06:25 AST 86 U/L (15-37) H 03/12/19 06:20 ALT 254 U/L (12-78) H 03/12/19 06:20 240 U/L (46-116) H 03/12/19 06:20 < 0.05 ng/mL (0.00-0.06) 03/09/19 16:02 7.3 g/dL (6.4-8.2) 03/12/19 06:20 3.1 g/dL (3.4-5.0) L 03/12/19 06:20 118 U/L (73-393) 03/09/19 16:02 TSH 0.79 uIU/mL (0.36-3.74) 03/10/19 20:08 Yellow (Yellow) 03/09/19 23:25 Sl cloudy (Clear) 03/09/19 23:25 5.0 (5-8) 03/09/19 23:25 Ur Specific [place] <= 1.005 (1.005-1.025) 03/09/19 23:25 Negative mg/dL (Negative) 03/09/19 23:25 Negative mg/dL (Negative) 03/09/19 23:25 Trace-intact (Negative) H 03/09/19 23:25 Negative (Negative) 03/09/19 23:25 Negative (Negative) 03/09/19 23:25 0.2 EU/dL (Up TO 0.2) 03/09/19 23:25 Ur Leukocyte Esterase Small (Negative) H 03/09/19 23:25 3-5 (0-2) H 03/09/19 23:25 3-5 HPF (0-5) 03/09/19 23:25 Ur Epithelial Cells Many HPF (Negative) 03/09/19 23:25 Negative HPF (Negative) 03/09/19 23:25 Few HPF (Negative) 03/09/19 23:25 Negative LPF (Negative) 03/09/19 23:25 Negative (Negative) 03/09/19 23:25 Ur Culture Indicated? No/sq. contamination 03/09/19 23:25 Negative mg/dL (Negative) 03/09/19 23:25 Stool Campylobacter PCR See comments 03/09/19 19:44 Stl C.difficile Tox PCR Positive A 03/09/19 19:45 Stool Salmonella PCR See comments 03/09/19 19:44 Stool Shigella PCR See comments 03/09/19 19:44 IgG Cancelled 03/10/19 16:58 IgA Cancelled 03/10/19 16:58 IgM Cancelled 03/10/19 16:58 C.difficile Tox Source Feces 03/09/19 19:45 Hepatitis A IgM Ab Negative (NEGAT) 03/10/19 06:25 Hep Bs Antigen Negative (NEGAT) 03/10/19 06:25 Hep B Core Total Ab Negative (NEGAT) 03/10/19 06:25 Negative (NEGAT) 03/10/19 06:25 See comments 03/09/19 19:44
[2019-03-12] MEDS: Normal Saline 1,000 ML 75 ML IV (11:29)
[2019-03-12] MEDS: MAGNESIUM SULFATE 2 GM/50 ML BAG IVPB (11:30)
[2019-03-12 13:08] LABS: Albumin 51.5 % (55.8-66.1); Total Protein 6.9 g/dl (6.3-8.2)
[2019-03-12 14:10] LABS: ANA Interpretation Negative (NEGAT)
[2019-03-12 16:28] LABS: Smooth Muscle Ab Screen Negative (Negative)
[2019-03-12 18:24] LABS: Tissue Transglutaminase Ab IgA <1.2 U/mL
[2019-03-12] MEDS: Nystatin POWDER 60 GM JAR TP (20:04)
[2019-03-12] MEDS: Insulin Glargine 300 UNITS/3 ML PEN 16 UNITS SC (20:26)
[2019-03-12] MEDS: traMADol 50 MG TAB PO (20:27)
[2019-03-12] MEDS: Metoprolol CR 25 MG TABCR PO (20:27)
[2019-03-12] MEDS: LORazepam 1 MG TAB PO (20:27)
[2019-03-13] MEDS: Vancomycin 125 MG CAP 500 MG PO ×4 (00:15→17:07)
[2019-03-13] MEDS: metroNIDAZOLE 500 MG/100 ML BAG 100 MG IVPB ×4 (02:02→19:20)
[2019-03-13] MEDS: Normal Saline 1,000 ML 75 ML IV ×2 (03:24→22:43)
[2019-03-13 03:30] VITALS: BP 142/70; PULSE 74; RESP 20; TEMP 36.5; O2SAT 95
[2019-03-13 06:37] LABS: Abs Immature Grans 0.02 k/cumm (0.0-0.09); Absolute Basophil Count 0.04 k/cumm (0.0-0.2); Absolute Eosinophil Count 0.31 k/cumm (0.0-0.7); Absolute Lymphocyte Count 1.87 k/cumm (1.2-3.4); Absolute Monocyte Count 0.65 k/cumm (0.11-0.7); Absolute Neutrophil Count 4.43 k/cumm (1.2-6.7); Basophils % 0.5; Eosinophils % 4.2; HCT 32.4 % (36.0-46.0); HGB 9.7 g/dL (12.0-15.5); Immature Grans % 0.3; Lymphocytes % 25.5; Mean Corp. HGB Concentration 29.9 g/dL (32.0-36.0); Mean Corpuscular Hemoglobin 28.1 pg (27.0-33.0); Mean Corpuscular Volume 93.9 fL (80-95); Mean Platelet Volume 8.9 fL (8.0-11.0); Monocytes % 8.9; Neutrophils % 60.6; Platelet Count 557 x1000/uL (130-400); RBC 3.45 m/cumm (4.00-5.20); RBC Distribution Width 16.2 % (11.7-14.6); White Blood Cell Count 7.32 k/cumm (4.4-10.8)
[2019-03-13 06:49] LABS: ALT 177 U/L (12-78); AST 49 U/L (15-37); Alkaline Phosphatase 197 U/L (46-116); Anion Gap 7.7 mmol/L (3-11); BUN 14 mg/dL (7-18); Bilirubin, Total 0.1 mg/dL (0.2-1.0); CO2 32.3 mmol/L (21.0-32.0); CREATININE 1.06 mg/dL (0.55-1.02); Calcium 9.5 mg/dL (8.5-10.1); Chloride 105 mmol/L (98-107); Estimated GFR 52.88 (mL/min/1.73m2); Glucose 123 mg/dL (70-100); Magnesium 1.6 mg/dL (1.8-2.4); Potassium 4.3 mmol/L (3.5-5.1); Sodium 145 mmol/L (136-145)
[2019-03-13 07:10] VITALS: BP 129/74; PULSE 75; RESP 18; TEMP 36.7; O2SAT 100
[2019-03-13] MEDS: Enoxaparin 40 MG/0.4 ML SYR SC (07:34)
[2019-03-13] MEDS: Nystatin POWDER 60 GM JAR TP ×2 (07:34→19:31)
[2019-03-13] MEDS: Losartan 50 MG TAB 100 MG PO (07:35)
[2019-03-13] MEDS: Ondansetron 4 MG/2 ML VIAL IVP (07:35)
[2019-03-13] MEDS: Cholecalciferol (Vitamin D3) 1,000 UNIT TAB 5000 UNITS PO (07:35)
[2019-03-13] MEDS: Normal Saline Flush 10 ML SYR IVP (07:35)
[2019-03-13] MEDS: hydroCHLOROthiazide 12.5 MG TAB PO (07:36)
[2019-03-13] MEDS: amLODIPine 10 MG TAB PO (07:36)
[2019-03-13] MEDS: Magnesium Oxide 400 MG TAB PO ×2 (07:36→19:21)
[2019-03-13] MEDS: DULoxetine 30 MG CAP 60 MG PO (07:36)
[2019-03-13] MEDS: Clopidogrel 75 MG TAB PO (07:36)
[2019-03-13] MEDS: Aspirin 81 MG CHEW PO ×2 (07:36→19:21)
[2019-03-13] MEDS: Tiotropium Bromide-Respimat 10 PUFF INH IH (07:37)
[2019-03-13] MEDS: Budesonide/Formoterol 160/4.5 6 GM 60 PUFF INH IH ×2 (07:38→21:10)
[2019-03-13] MEDS: Insulin Aspart 300 UNITS/3 ML PEN SC ×4 (07:38→17:10)
[2019-03-13] MEDS: buPROPion-XL 150 MG TABCR PO (07:57)
[2019-03-13] MEDS: MAGNESIUM SULFATE 2 GM/50 ML BAG IVPB (08:49)
--- NOTE | 2019-03-13 10:34 | W.PM.PROGNOT ---
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 - Continue IV Flagyl and PO Vancomycin day #3 - appears improved. - Apparent Jejunal wall thickening on original CT scan is no longer present on repeat CT. - Work-up elevated LFTs as below - essentially negative and likely related to current illness. - Continue Supportive care. Stool cultures negative. Patient with continued loose stools and watery diarrhea that has vastly improved since admission, and with chronicity that may represent other pathology. Appears to be approaching baseline. (2) Transaminitis: Current visit: Yes Status: Acute Unknown etiology, but appears to be improving again this morning. - Hx Cholecystectomy, and currently with normal bilirubin, minimally elevated Alk Phos and essentially normal liver u/s and MRCP - doubt choledocholithiasis or ascending cholangitis. - Reports no new medications over the last 2-3 months, and denies any over the counter products. Denies any EtOH use or abuse. - Acute hepatitis panel negative. Transferrin saturation <45% and not indicative of Hemochromatosis. FATUMA, Anti-SM Ab's negative. Given history of iron and B12 deficiency, an anti-TTG was checked and negative. TSH checked and normal. (3) Diabetes mellitus: Current visit: Yes Status: Chronic Continue with basal insulin and sliding scale, but monitor sugars closely. (4) COPD (chronic obstructive pulmonary disease): Current visit: Yes Status: Chronic Appears quiescent. Continue IGC/LABA, Tiotropium, and Daliresp. Duoneb prn. Qualifiers: COPD type: unspecified COPD Qualified Code(s): J44.9 - Chronic obstructive pulmonary disease, unspecified (5) DVT prophylaxis: Current visit: Yes Status: Acute SC Enoxaparin. Also on PPI therapy, which was discontinued given current diarrhea and C.Diff - started H2 lori. Subjective Interval history since last seen: 58-year-old woman with a prior history of IDDM and COPD, admitted from [facility] Emergency Department with reported diarrhea and evidence of elevated LFTs. Mrs. 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 She has a history of Cholecystectomy, and reports a previous C.Diff infection in the setting of antibiotic use. 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 She presented to the ED with complaints of a 2 month history of nausea and vomiting, now with acute onset of RUQ pain and significant watery diarrhea. Work-up in the ED was significant for a mild anemia, elevated platelet count, and mildly elevated Creatinine. However, she was also noted to have a transaminitis, with an AST in the 700's and ALT of 268, with minimally elevated Alk Phos and essentially normal Bilirubin. Her lipase was also checked and normal. C. Diff returned with Ag+, but toxin negative. Initial non-contrast CT of the abdomen showed a focal jejunal wall thickening of uncertain etiology. Given her lab findings she was admitted for further evaluation and treatment, and initiated on antibiotic therapy for a potential C.Diff infection. Following admission Mrs. Ivy underwent further testing with CTA of the abdomen, RUQ u/s, and MRCP - all essentially negative for acute pathology. Her C.Diff by PCR however returned as positive. This morning the patient's reports continued improvement in symptoms, specifically with vast decrease in pain and overall improvement in diarrhea. She does report chronicity to her loose stools, now ongoing for a number of months, and her current diarrhea appears to be approaching baseline. Her LFTs continue to improve, and her creatinine remains improved. Hepatitis panel was checked and negative, as were stool cultures. FATUMA, TTG, and Anti-Smooth Muscle antibody were checked and negative as well. No other events reported overnight. She remains afebrile. Exam Narrative Exam Narrative: General: Patient appears comfortable, AAOX3, NAD Neck: Supple CV: Regular, nontachycardic, S1S2, No rubs, murmurs, or gallops. Pulmonary: Clear to auscultation bilaterally, no crackles, wheezing, or rhonchi Abdomen: + Bowel Sounds, soft, nondistended but obese in contour, point tenderness in RUQ essentially resolved. Vascular: Mild non-pitting b/l lower extremity edema Psych: Normal mood and affect. Objective Objective Clinical Data: Abnormal lab results 03/10/19 03/13/19 03/13/19 Range/Units 20:08 06:15 06:15 RBC 3.45 L (4.00-5.20) m/cumm Hgb 9.7 L (12.0-15.5) g/dL Hct 32.4 L (36.0-46.0) % MCHC 29.9 L (32.0-36.0) g/dL RDW 16.2 H (11.7-14.6) % Plt Count 557 H (130-400) x1000/uL Carbon Dioxide 32.3 H (21.0-32.0) mmol/L Creatinine 1.06 H (0.55-1.02) mg/dL Glucose 123 H (70-100) mg/dL Magnesium 1.6 L (1.8-2.4) mg/dL Total Bilirubin 0.1 L (0.2-1.0) mg/dL AST 49 H (15-37) U/L ALT 177 H (12-78) U/L Alkaline Phosphatase 197 H (46-116) U/L Albumin 3.0 L (3.4-5.0) g/dL Albumin % (PEP) 51.5 L (55.8-66.1) % [id number] (%) 6.4 H (2.9-4.9) % Fppwh-[id number]-Rfxafyiut (%) 16.0 H (7.1-11.8) % Beta Globulins (%) 14.3 H (8.4-13.1) % Vital Signs Temperature 36.7 C 03/13/19 07:10 Temperature Source Tympanic 03/13/19 07:10 Pulse 75 03/13/19 07:10 Pulse Rhythm Regular 03/13/19 08:01 Pulse 84 03/09/19 18:10 Respiratory Rate 18 03/13/19 07:10 Respiratory Effort 03/13/19 08:01 Respiratory Depth Normal 03/13/19 08:01 Respiratory Pattern Normal 03/13/19 08:01 Blood Pressure 129/74 03/13/19 07:10 Blood Pressure Mean 60 03/09/19 18:01 Blood Pressure Position Sitting 03/09/19 15:34 Pulse Oximetry 100 03/13/19 07:10 Oxygen Delivery Method Nasal Cannula 03/13/19 07:10 Oxygen Flow Rate 3 03/13/19 07:10 Pain Level 0 03/13/19 07:10 Comment 03/10/19 01:05 Intake & Output 03/12/19 03/12/19 03/13/19 11:59 23:59 11:59 Intake Total 740 / 2243.75 1503.75 / 2243.75 951.25 / 951.25 Output Total 1000 / 1000 Balance 740 / 1243.75 503.75 / 1243.75 951.25 / 951.25 Weight 110.4 kg 110.9 kg Intake: IV 200 / 1088.75 888.75 / 1088.75 461.25 / 461.25 Oral 540 / 1155 615 / 1155 490 / 490 Output: Urine 1000 / 1000 Other: Urine Color Yellow Yellow Urine Appearance Clear Clear Clear Urine Odor Normal Comment VOID X 2 FROM AFTER 0330 TIL NOW Stool Size Small Voiding Methods Toilet Toilet Toilet Laboratory Results WBC 7.32 k/cumm (4.4-10.8) 03/13/19 06:15 RBC 3.45 m/cumm (4.00-5.20) L 03/13/19 06:15 Hgb 9.7 g/dL (12.0-15.5) L 03/13/19 06:15 Hct 32.4 % (36.0-46.0) L 03/13/19 06:15 MCV 93.9 fL (80-95) 03/13/19 06:15 MCH 28.1 pg (27.0-33.0) 03/13/19 06:15 MCHC 29.9 g/dL (32.0-36.0) L 03/13/19 06:15 RDW 16.2 % (11.7-14.6) H 03/13/19 06:15 Plt Count 557 x1000/uL (130-400) H 03/13/19 06:15 MPV 8.9 fL (8.0-11.0) 03/13/19 06:15 Immature Gran % 0.3 03/13/19 06:15 60.6 03/13/19 06:15 25.5 03/13/19 06:15 8.9 03/13/19 06:15 4.2 03/13/19 06:15 0.5 03/13/19 06:15 Absolute Neutrophils 4.43 k/cumm (1.2-6.7) 03/13/19 06:15 Absolute Lymphocytes 1.87 k/cumm (1.2-3.4) 03/13/19 06:15 Absolute Monocytes 0.65 k/cumm (0.11-0.7) 03/13/19 06:15 Absolute Eosinophils 0.31 k/cumm (0.0-0.7) 03/13/19 06:15 Absolute Basophils 0.04 k/cumm (0.0-0.2) 03/13/19 06:15 Rbc morph reviewed 03/10/19 06:25 RBC Morphology See below 03/10/19 06:25 Present 03/10/19 06:25 2+ 03/10/19 06:25 1+ 03/10/19 06:25 Sodium 145 mmol/L (136-145) 03/13/19 06:15 Potassium 4.3 mmol/L (3.5-5.1) 03/13/19 06:15 Chloride 105 mmol/L (98-107) 03/13/19 06:15 Carbon Dioxide 32.3 mmol/L (21.0-32.0) H 03/13/19 06:15 7.7 mmol/L (3-11) 03/13/19 06:15 BUN 14 mg/dL (7-18) 03/13/19 06:15 1.06 mg/dL (0.55-1.02) H 03/13/19 06:15 52.88 (mL/min/1.73m2) 03/13/19 06:15 Glucose 123 mg/dL (70-100) H 03/13/19 06:15 5.8 % (4.5-6.2) 03/10/19 06:25 0.6 mmol/L (0.6-1.4) 03/11/19 00:35 Calcium 9.5 mg/dL (8.5-10.1) 03/13/19 06:15 Magnesium 1.6 mg/dL (1.8-2.4) L 03/13/19 06:15 Iron 60 ug/dL (50-175) 03/10/19 06:25 TIBC 300 ug/dL (250-450) 03/10/19 06:25 Transferrin % Sat 20 % (15-50) 03/10/19 06:25 188 ng/mL (8-388) 03/10/19 06:25 0.1 mg/dL (0.2-1.0) L 03/13/19 06:15 0.30 mg/dL (0.00-0.20) H 03/10/19 06:25 AST 49 U/L (15-37) H 03/13/19 06:15 ALT 177 U/L (12-78) H 03/13/19 06:15 197 U/L (46-116) H 03/13/19 06:15 < 0.05 ng/mL (0.00-0.06) 03/09/19 16:02 7.0 g/dL (6.4-8.2) 03/13/19 06:15 6.9 g/dl (6.3-8.2) 03/10/19 20:08 3.0 g/dL (3.4-5.0) L 03/13/19 06:15 51.5 % (55.8-66.1) L 03/10/19 20:08 6.4 % (2.9-4.9) H 03/10/19 20:08 16.0 % (7.1-11.8) H 03/10/19 20:08 14.3 % (8.4-13.1) H 03/10/19 20:08 11.8 % (11.1-18.8) 03/10/19 20:08 M-Jacob % Not Applicable 03/10/19 20:08 PEP Comment See comment 03/10/19 20:08 118 U/L (73-393) 03/09/19 16:02 TSH 0.79 uIU/mL (0.36-3.74) 03/10/19 20:08 Yellow (Yellow) 03/09/19 23:25 Sl cloudy (Clear) 03/09/19 23:25 5.0 (5-8) 03/09/19 23:25 Ur Specific [facility] <= 1.005 (1.005-1.025) 03/09/19 23:25 Negative mg/dL (Negative) 03/09/19 23:25 Negative mg/dL (Negative) 03/09/19 23:25 Trace-intact (Negative) H 03/09/19 23:25 Negative (Negative) 03/09/19 23:25 Negative (Negative) 03/09/19 23:25 0.2 EU/dL (Up TO 0.2) 03/09/19 23:25 Ur Leukocyte Esterase Small (Negative) H 03/09/19 23:25 3-5 (0-2) H 03/09/19 23:25 3-5 HPF (0-5) 03/09/19 23:25 Ur Epithelial Cells Many HPF (Negative) 03/09/19 23:25 Negative HPF (Negative) 03/09/19 23:25 Few HPF (Negative) 03/09/19 23:25 Negative LPF (Negative) 03/09/19 23:25 Negative (Negative) 03/09/19 23:25 Ur Culture Indicated? No/sq. contamination 03/09/19 23:25 Negative mg/dL (Negative) 03/09/19 23:25 Stool Campylobacter PCR See comments 03/09/19 19:44 Stl C.difficile Tox PCR Positive A 03/09/19 19:45 Stool Salmonella PCR See comments 03/09/19 19:44 Stool Shigella PCR See comments 03/09/19 19:44 IgG Cancelled 03/10/19 16:58 IgA Cancelled 03/10/19 16:58 IgM Cancelled 03/10/19 16:58 FATUMA Titer Not Applicable 03/10/19 20:08 FATUMA Titer 2 Not Applicable 03/10/19 20:08 FATUMA Titer 3 Not Applicable 03/10/19 20:08 FATUMA Interpretation Negative (NEGAT) 03/10/19 20:08 Anti-Smooth Muscle Ab Negative (Negative) 03/10/19 20:08 Tiss Transglutamin IgA <1.2 U/mL 03/10/19 20:08 C.difficile Tox Source Feces 03/09/19 19:45 Hepatitis A IgM Ab Negative (NEGAT) 03/10/19 06:25 Hep Bs Antigen Negative (NEGAT) 03/10/19 06:25 Hep B Core Total Ab Negative (NEGAT) 03/10/19 06:25 Negative (NEGAT) 03/10/19 06:25 See comments 03/09/19 19:44
[2019-03-13 11:12] VITALS: BP 100/65; PULSE 82; RESP 18; TEMP 36.7; O2SAT 96
--- NOTE | 2019-03-13 12:38 | PDOC.CMPRO ---
- If Service Date Differs Date of service: 03/13/19 Time of Service: 12:38 Care Management Progress Note S/O:Angela was sitting up in bed when CM came to see her. She was pleasant and engaged readily in conversation. She states she is feeling much better and hopes to be discharged tomorrow. Angela has been found to be positive for C. difficile by PCR. She had been started on appropriate treatment and states her diarrhea has decreased significantly. She talked a bit about her sons and home life and how much she enjoys spending time with her 4 year old granddaughter. A: Angela is a 58 year old woman admitted to [facility] on 03/10/19 with enteritis P: Angela will be discharged home with a resumption of services in her community of [place], [place]. She currently has caregivers 4 days a week and MOW. CM will continue to support patient, family and discharge planning process. A request has been received from [facility] in [place], who provide home services to Angela, for clinical updates. CM faxed appropraite notes to them.
[2019-03-13 15:28] VITALS: BP 117/73; PULSE 76; RESP 18; TEMP 36.8; O2SAT 98
[2019-03-13] MEDS: Acetaminophen 325 MG TAB PO (15:46)
[2019-03-13 19:23] VITALS: BP 144/73; PULSE 73; RESP 16; TEMP 36.3; O2SAT 97
[2019-03-13] MEDS: Insulin Glargine 300 UNITS/3 ML PEN 13 UNITS SC (21:11)
[2019-03-13] MEDS: LORazepam 1 MG TAB PO (21:13)
[2019-03-13] MEDS: Metoprolol CR 25 MG TABCR PO (21:13)
[2019-03-13] MEDS: traMADol 50 MG TAB PO (21:13)
[2019-03-13 23:00] VITALS: BP 141/74; PULSE 81; RESP 18; TEMP 36.5; O2SAT 95
[2019-03-14] MEDS: Vancomycin 125 MG CAP 500 MG PO ×2 (00:45→06:20)
[2019-03-14] MEDS: metroNIDAZOLE 500 MG/100 ML BAG 100 MG IVPB ×2 (02:24→07:47)
[2019-03-14 03:27] VITALS: BP 151/70; PULSE 66; RESP 16; TEMP 35.8; O2SAT 98
[2019-03-14 06:51] LABS: Abs Immature Grans 0.03 k/cumm (0.0-0.09); Absolute Basophil Count 0.04 k/cumm (0.0-0.2); Absolute Eosinophil Count 0.37 k/cumm (0.0-0.7); Absolute Lymphocyte Count 1.92 k/cumm (1.2-3.4); Absolute Monocyte Count 0.73 k/cumm (0.11-0.7); Absolute Neutrophil Count 5.56 k/cumm (1.2-6.7); Basophils % 0.5; Eosinophils % 4.3; HCT 32.3 % (36.0-46.0); HGB 9.6 g/dL (12.0-15.5); Immature Grans % 0.3; Lymphocytes % 22.2; Mean Corp. HGB Concentration 29.7 g/dL (32.0-36.0); Mean Corpuscular Hemoglobin 28.3 pg (27.0-33.0); Mean Corpuscular Volume 95.3 fL (80-95); Mean Platelet Volume 8.9 fL (8.0-11.0); Monocytes % 8.4; Neutrophils % 64.3; Platelet Count 557 x1000/uL (130-400); RBC 3.39 m/cumm (4.00-5.20); RBC Distribution Width 16.2 % (11.7-14.6); White Blood Cell Count 8.65 k/cumm (4.4-10.8)
[2019-03-14 06:53] LABS: ALT 140 U/L (12-78); AST 35 U/L (15-37); Albumin 3.1 g/dL (3.4-5.0); Alkaline Phosphatase 176 U/L (46-116); Anion Gap 7.2 mmol/L (3-11); BUN 16 mg/dL (7-18); Bilirubin, Total 0.1 mg/dL (0.2-1.0); CO2 33.8 mmol/L (21.0-32.0); Calcium 9.5 mg/dL (8.5-10.1); Chloride 106 mmol/L (98-107); Estimated GFR 56.56 (mL/min/1.73m2); Glucose 126 mg/dL (70-100); Magnesium 1.6 mg/dL (1.8-2.4); Potassium 4.4 mmol/L (3.5-5.1); Sodium 147 mmol/L (136-145); Total Protein 7.3 g/dL (6.4-8.2)
[2019-03-14 07:20] VITALS: BP 142/68; PULSE 70; RESP 18; TEMP 36.2; O2SAT 97
[2019-03-14] MEDS: Nystatin POWDER 60 GM JAR TP (07:45)
[2019-03-14] MEDS: Losartan 50 MG TAB 100 MG PO (07:46)
[2019-03-14] MEDS: DULoxetine 30 MG CAP 60 MG PO (07:46)
[2019-03-14] MEDS: hydroCHLOROthiazide 12.5 MG TAB PO (07:46)
[2019-03-14] MEDS: Clopidogrel 75 MG TAB PO (07:46)
[2019-03-14] MEDS: Cholecalciferol (Vitamin D3) 1,000 UNIT TAB 5000 UNITS PO (07:46)
[2019-03-14] MEDS: amLODIPine 10 MG TAB PO (07:47)
[2019-03-14] MEDS: Enoxaparin 40 MG/0.4 ML SYR SC (07:47)
[2019-03-14] MEDS: Aspirin 81 MG CHEW PO (07:47)
[2019-03-14] MEDS: Insulin Aspart 300 UNITS/3 ML PEN SC (07:47)
[2019-03-14] MEDS: buPROPion-XL 150 MG TABCR PO (07:48)
[2019-03-14] MEDS: Magnesium Oxide 400 MG TAB PO (07:48)
--- NOTE | 2019-03-14 07:53 | W.PM.DS.N ---
Date of service: 03/14/19 Time of Service: 07:53 DS: Diagnosis Discharge Diagnosis (1) Diarrhea: Status: Acute (2) Transaminitis: Status: Acute (3) Diabetes mellitus: Status: Chronic (4) COPD (chronic obstructive pulmonary disease): Status: Chronic (5) DVT prophylaxis: Status: Acute Discharge Plan Disposition Patient Disposition: HOME Condition: Stable Discharge Details Chief Complaint: Abd Prob Clinical Impression: Chronic diarrhea, Enteritis, Transaminitis, Chronic vomiting Reason For Visit: ENTERITIS,POSSIBLE C DIFF,TRANSAMINITIS,CHRONIC [place] Admit Date/Time: 03/10/19 09:42 Admit Provider: David Roberts Attending Provider: David Roberts Primary Care Provider: Ravindra Knowles ED Provider: Freda Stout Hospital Course Hospital Course: Chief Complaint: Abdominal Pain, Diarrhea HPI: 58-year-old woman with a prior history of IDDM and COPD, admitted from [facility] Emergency Department with reported diarrhea and evidence of elevated LFTs. Mrs. 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 She has a history of Cholecystectomy, and reports a previous C.Diff infection in the setting of antibiotic use. 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 She presented to the ED with complaints of a 2 month history of loose stools and nausea, but now with acute onset of RUQ pain and significant watery diarrhea that is significantly worse than her baseline. Work-up in the ED was significant for a mild anemia, elevated platelet count, and mildly elevated Creatinine. However, she was also noted to have a transaminitis, with an AST in the 700's and ALT of 268, with minimally elevated Alk Phos and essentially normal Bilirubin. Her lipase was also checked and normal. C. Diff returned with Ag+, but toxin negative. Initial non-contrast CT of the abdomen showed a focal jejunal wall thickening of uncertain etiology. Given her lab findings she was admitted for further evaluation and treatment, and initiated on antibiotic therapy for a potential C.Diff infection. Following admission Mrs. Ivy underwent further testing with CTA of the abdomen, RUQ u/s, and MRCP - all essentially negative for acute pathology. Her C.Diff by PCR however returned as positive. Her LFTs improved dramatically with treatment of her infection, and are almost back to baseline this morning, and her creatinine is now normal. The patient's abdominal pain has essentially resolved. She does report chronicity to her loose stools, now ongoing for a number of months, and her current diarrhea appears to be approaching baseline. Hepatitis panel was checked and negative, as were stool cultures. FATUMA, TTG, and Anti-Smooth Muscle antibody were checked and negative as well. No other events reported overnight. She remains afebrile. Hospital Course: (1) Diarrhea: History of Mesenteric Ischemia and C.Diff, with CTA negative for occlusion and C.Diff with Ag+, Toxin negative - now with PCR confirming C.Diff +. - Patient was maintained on IV Flagyl and PO Vancomycin for 3 days - appears improved. - Apparent Jejunal wall thickening on original CT scan is no longer present on repeat CTA. - Work-up elevated LFTs as below - essentially negative and likely related to current illness. Stool cultures negative. - Patient with continued loose and watery stools that has improved since admission, and with chronicity that may represent other pathology. Reportedly discontinued Metformin previously without effect. Currently on Bupropion, PPI that has remained on hold since admission, Daliresp, and Tramadol - all as potential etiology for chronic diarrhea. Given recurrent C.Diff her PPI will be discontinued, and advise to attempt possible med adjustment as outpatient to ascertain potential link to chronic diarrhea. Would also recommend GI work-up with colonoscopy as outpatient for further evaluation as well. - Will continue oral Vancomycin until completion of antibiotic course - patient reports initial C.Diff infection was not treated with PO Vanc. (2) Transaminitis: Unknown etiology, but appears to be improving again this morning and now nearly normalized. - Hx Cholecystectomy, and currently with normal bilirubin, minimally elevated Alk Phos and essentially normal liver u/s and MRCP - doubt choledocholithiasis or ascending cholangitis. - Reports no new medications over the last 2-3 months, and denies any over the counter products. Denies any EtOH use or abuse. - Acute hepatitis panel negative. Transferrin saturation <45% and not indicative of Hemochromatosis. FATUMA, Anti-SM Ab's negative. - Given history of iron and B12 deficiency, an anti-TTG was checked and negative. TSH checked and normal. - Possible relation to acute illness as numbers have improved with treatment and supportive care. (3) Diabetes mellitus: Continue with basal insulin and sliding scale, but hold Metformin at time of discharge. (4) COPD (chronic obstructive pulmonary disease): Appears quiescent. Continue IGC/LABA, Tiotropium, and Daliresp. Duoneb prn. (5) HTN Patient was maintained on her BB, CCB, and thiazide diuretic therapy. Of note, review of her home meds lists combination Losartan-HCTZ as well as Chlorthalidone as home meds - this needs to be reviewed once patient returns to her PCP, as she is from outside this hospital's network and records are unavailable at this time. (6) DVT prophylaxis: Was maintained on SC Enoxaparin. Also on PPI therapy, which was discontinued given current diarrhea and C.Diff - started H2 lori, which will be continued at discharge. Home Meds and New Rx's Prescriptions: New ranitidine HCl 150 mg Tablet 150 mg PO BID Qty: 60 RF: 0 nystatin 100,000 unit/gram Powder 0 g topical BID Qty: 1 RF: 1 vancomycin 125 mg capsule 125 mg PO QID Qty: 30 RF: 0 ondansetron 4 mg tablet,disintegrating 4 mg PO Q8H PRN (Reason: nausea and vomiting) Qty: 30 RF: 0 Continued clopidogrel [Plavix] 75 mg Tablet 75 mg PO DAILY RF: 0 chlorthalidone 25 mg Tablet 12.5 mg PO DAILY RF: 0 tramadol [Ultram] 50 mg Tablet 50 mg PO HS RF: 0 dicyclomine 20 mg Tablet 20 mg PO QID PRN PRNRF: 0 amlodipine [Norvasc] 10 mg Tablet 10 mg PO DAILY RF: 0 fluticasone propion-salmeterol [Advair Diskus] 500-50 mcg/dose Blister With Device 1 inh INHALATION BID RF: 0 aspirin 81 mg Tablet,Chewable 81 mg PO BID RF: 0 metoprolol succinate 25 mg Tablet Extended Release 24 Hr 25 mg PO HS RF: 0 lorazepam 1 mg Tablet 1 mg PO HS RF: 0 albuterol sulfate [ProAir HFA] 90 mcg/actuation Hfa Aerosol Inhaler 2 puff INHALATION PRN PRNRF: 0 magnesium 200 mg Tablet 400 mg PO BID RF: 0 Spiriva with HandiHaler 18 mcg Capsule, W/Inhalation Device 1 cap INHALATION DAILY RF: 0 duloxetine [Cymbalta] 60 mg Capsule,Delayed Release(Dr/Ec) 60 mg PO DAILY RF: 0 losartan-hydrochlorothiazide 100-12.5 mg Tablet 1 tab PO DAILY RF: 0 Lantus Solostar U-100 Insulin 100 unit/mL (3 mL) Insulin Pen 13 unit SUBCUT HS RF: 0 cholecalciferol (vitamin D3) [Vitamin D3] 5,000 unit Tablet 5,000 unit PO DAILY RF: 0 Daliresp 500 mcg Tablet 500 mcg PO DAILY RF: 0 bupropion HCl [Wellbutrin XL] 150 mg Tablet Extended Release 24 Hr 150 mg PO DAILY RF: 0 Discontinued Dexilant 60 mg Capsule,Biphase Delayed Releas 60 mg PO DAILY RF: 0 metformin 1,000 mg Tablet 1,000 mg PO BID RF: 0 Discharge Instructions Stand Alone Forms: Nursing Discharge Form Referrals: Ravindra Knowles [Primary Care Provider] - Activity:: No Strenuous activity Equipment/Supplies:: No Equipment Needed Diet:: Carb Counting Discharge Orders Discharge Orders: Discharge Order (Routine); Ordered 03/14/19 Ordered By: Roosevelt Quinn DS: Data Vitals/I&O Vitals and I&O: Vital Signs Temperature 35.8 C L 03/14/19 03:27 Temperature Source Tympanic 03/14/19 03:27 Pulse 66 03/14/19 03:27 Pulse Rhythm Regular 03/13/19 19:23 Pulse 84 03/09/19 18:10 Respiratory Rate 16 03/14/19 03:27 Respiratory Effort Non-Labored 03/13/19 19:23 Respiratory Depth Normal 03/13/19 19:23 Respiratory Pattern Normal 03/13/19 19:23 Blood Pressure 151/70 H 03/14/19 03:27 Blood Pressure Mean 60 03/09/19 18:01 Blood Pressure Position Sitting 03/09/19 15:34 Pulse Oximetry 98 03/14/19 03:27 Oxygen Delivery Method Room Air 03/14/19 03:27 Oxygen Flow Rate 0 03/14/19 03:27 Pain Level 0 03/13/19 19:23 Comment 03/10/19 01:05 Intake & Output 03/13/19 03/13/19 03/14/19 11:59 23:59 11:59 Intake Total 1051.25 / 2871.75 1820.5 / 2871.75 600 / 600 Balance 1051.25 / 2871.75 1820.5 / 2871.75 600 / 600 Weight 110.9 kg 111 kg Intake: IV 561.25 / 1811.75 1250.5 / 1811.75 100 / 100 Oral 490 / 1060 570 / 1060 500 / 500 Other: Urine Color Yellow Yellow Urine Appearance Clear Clear Urine Odor Normal Comment Patient voids independently in BR. Voiding Methods Toilet Toilet Toilet Completed studies during hospitalization [Text1]: Exam(s) 03/10/2019 a MRI:MR abdomen wo SYMPTOM/DIAGNOSIS: ABD PAIN, TRANSAMINITIS, S/P CHOLECYSTECTOMY MRCP: MRCP was performed according to the usual protocol. Incidental note is made of left renal cyst. No hepatic or pancreatic signal abnormality is seen. No adenopathy in the visualized portion of the abdomen. The patient has had a prior cholecystectomy. There is artifact from metallic clips in the gallbladder fossa. Intra and extrahepatic ducts are mildly dilated with common duct measuring about 12 mm. in diameter, this is at the upper limits of normal for post cholecystectomy patient. Pancreatic duct is non dilated. CONCLUSION: Borderline dilatation of common bile duct, no definite intraluminal filling defect identified by MRCP criteria. If there is clinical or laboratory evidence of biliary obstruction such as rising bilirubin levels, additional evaluation with ERCP may be considered to evaluate for a lesion of the distal common duct. Exam(s) 03/10/2019 a US:US abdomen SYMPTOM/DIAGNOSIS: ABDOMINAL PAIN, TRANSAMINITIS ABDOMINAL ULTRASOUND: 03/10 The visualized liver parenchyma is normal in appearance. There has reportedly been a prior cholecystectomy. Common hepatic duct is of the upper limits of normal at 12-13 mm for post cholecystectomy. The pancreas is not well seen. Spleen is unremarkable in appearance. Aorta is obscured by overlying bowel gas. IVC grossly of normal diameter Kidneys appear intact. CONCLUSION: No specific abnormality identified in a patient who is status post cholecystectomy. Exam(s) 03/10/[address]:CT abdomen & pelvis CTA SYMPTOM/DIAGNOSIS: ACUTE ABDOMINAL PAIN, TRANSAMINITIS R/O ISCHEMIA ABDOMINAL AND PELVIC CT ANGIOGRAM 03/10 CT angiography was performed with multi slice acquisition and multi planar and 3D reconstruction. CT angiography of the abdomen and pelvis was performed and is compared with recent oral contrast only CT. The jejunal wall thickening noted on the earlier study is not present on this examination and appears to have been transient. No evidence of obstruction. There is oral contrast material in the colon extending to the rectum and the oral contrast material has essentially cleared from the small bowel. Enhanced appearance of liver, spleen and pancreas is unremarkable. Enhanced appearance of the kidneys is unremarkable. Adrenals appear normal. There is calcified atheromatous plaque involving abdominal aorta and all branch vessels. Celiac trunk origin is narrowed and obscured. Presumed SMA stent vs calcification, more distal vessels are opacified. Renal arteries show calcified origins which are difficult to quantify for stenosis. Inferior mesenteric artery origin also obscured and stenosed with flow noted more distally. No focal bowel pathology identified. CONCLUSION: Severe atheromatous disease, no evidence of acute occlusion. Please see above discussion. --------- Exam(s) 03/09/[address]:CT abdomen & pelvis wo SYMPTOM/DIAGNOSIS: ABDOMINAL PAIN, NAUSEA/VOMITING, R/O ACUTE PROCESS ABDOMINAL AND PELVIC CT: 03/09 CT examination of the abdomen and pelvis was performed with oral contrast only. Images obtained through the lung bases are unremarkable. Mitral valve prosthesis noted in position. Liver, spleen and pancreas are unremarkable by noncontrast criteria. No biliary dilatation seen. Abdominal aorta is of normal diameter. Left renal cyst noted at the inferior pole. No evidence of urinary tract calcification or obstruction. No abdominal or pelvic adenopathy. Small fat containing umbilical hernia and small bilateral fat containing inguinal hernias noted. CATH LAB RADIOLOGICAL TECHNOLOGIST structures are unremarkable for age. There is loop of jejunum with findings suggesting thickened wall in the proximal jejunum. No gross evidence of obstruction with nondilated stomach. Remainder of the visualized small bowel and colon are unremarkable. No evidence of appendicitis or diverticulitis. CONCLUSION: Focal jejunal wall thickening, etiology uncertain. Appropriate follow up studies and clinical correlation requested. Labs on day of discharge: Labs from last 24 hours 03/14/19 03/14/19 03/10/19 06:15 06:15 20:08 WBC 8.65 RBC 3.39 L Hgb 9.6 L Hct 32.3 L MCV 95.3 H MCH 28.3 MCHC 29.7 L RDW 16.2 H Plt Count 557 H MPV 8.9 Immature Gran % 0.3 Neutrophils % 64.3 Lymphocytes % 22.2 Monocytes % 8.4 Eosinophils % 4.3 Basophils % 0.5 Absolute Neutrophils 5.56 Absolute Lymphocytes 1.92 Absolute Monocytes 0.73 H Absolute Eosinophils 0.37 Absolute Basophils 0.04 Sodium 147 H Potassium 4.4 Chloride 106 Carbon Dioxide 33.8 H Anion Gap 7.2 BUN 16 Creatinine 1.00 Estimated GFR/1.73 m2 56.56 Glucose 126 H Calcium 9.5 Magnesium 1.6 L Total Bilirubin 0.1 L AST 35 ALT 140 H Alkaline Phosphatase 176 H Total Protein 7.3 Albumin 3.1 L Anti-Smooth Muscle Ab Tiss Transglutamin IgA <1.2 03/10/19 20:08 WBC RBC Hgb Hct MCV MCH MCHC RDW Plt Count MPV Immature Gran % Neutrophils % Lymphocytes % Monocytes % Eosinophils % Basophils % Absolute Neutrophils Absolute Lymphocytes Absolute Monocytes Absolute Eosinophils Absolute Basophils Sodium Potassium Chloride Carbon Dioxide Anion Gap BUN Creatinine Estimated GFR/1.73 m2 Glucose Calcium Magnesium Total Bilirubin AST ALT Alkaline Phosphatase Total Protein Albumin Anti-Smooth Muscle Ab Negative Tiss Transglutamin IgA [facility] Medical History COPD (chronic obstructive pulmonary disease) (Chronic) Diabetes (Chronic) Diabetic neuropathy (Acute) Temporal arteritis (Acute) Surgical History History of hernia repair (Chronic) Hx of cholecystectomy (Chronic) Mesenteric ischemia (Acute) Social History Smoking/Tobacco Use Status: Former Tobacco Use Alcohol Intake: never Substance use type: does not use Do you feel safe at home: Yes
[2019-03-14] MEDS: Tiotropium Bromide-Respimat 10 PUFF INH IH (07:59)
[2019-03-14] MEDS: Budesonide/Formoterol 160/4.5 6 GM 60 PUFF INH IH (08:00)
--- NOTE | 2019-03-14 08:44 | HHF2F_ITS ---
1. Encounter Date and Reason I certify that PRISCILLA FUNG was seen by Roosevelt Quinn on 03/14/19 and that I had a [id number] encounter with this patient that meets the physician face to face encounter requirements. 2. Clinical Findings Supporting Skilled Need and Homebound Status I certify that home health services are medically necessary, include either intermittent nursing home and/or physical/speech therapy, and that this patient is homebound in that absences from the home require considerable and taxing effort and are infrequent or of short duration, or are attributable to the need to receive medical care. [X] (a) Attached documentation from encounter provides clinical findings supporting skilled need and homebound status (including what assistance patient requires to leave the home). The encounter with the patient was in whole, or in part, for the following medical condition, which is the primary reason for home health care: ENTERITIS,POSSIBLE C DIFF,TRANSAMINITIS,CHRONIC [place] [facility]: Please resume home care at discharge. Physical Therapy: Speech Therapy: Homebound: 3. Certification and Authentication I certify that I composed the above information based on my clinical judgement relating to this patient's medical condition and, if applicable, clinical findings communicated to me by the NPP or inpatient physician who performed the Home Health Referral. All further orders will be obtained through (Community Based Physician - PCP)
--- NOTE | 2019-03-14 13:18 | CMDISCH_ITS ---
- If Service Date Differs Date of service: 03/14/19 Time of Service: 13:18 LACE Index Scoring Tool - Questions: Length of Stay (in days): 4 - 6 Acuity (Admit via E.D.?): Yes Comorbidities: Diabetes w/o Complication, Chronic Pulmonary Disease E.D. Visits: 1 - Answers: Total Score: 11 Risk of Readmission: High Risk Care Management Discharge Reason for Hospitalization: Abdominal pain, NVD Discharge Plan: Angela will be discharged home with a resumption of services in her community of [place], [place]. She currently has caregivers 4 days a week and MOW. She will follow up with her [id number] plan of care. Angela will be transported by her friend via private vehicle. Patient/Family Education Needs: Discharge plan, limitations, follow up and Ask Me Three.
== END 2019-03-14 09:55 | disposition home or self-care (01) | DRG 392 ==
LOC: ER 16:19 → MS 20:35
PROVIDERS: Admitting Provider Internal Medicine; Emergency Provider Physician Assistant; PCP Internal Medicine; Visit Provider Internal Medicine
DX: K52.9 Noninfective gastroenteritis and colitis, unspecified (principal); R74.0 Nonspecific elevation of levels of transaminase and lactic acid dehydrogenase [LDH]; R10.11 Right upper quadrant pain; J44.9 Chronic obstructive pulmonary disease, unspecified; E11.42 Type 2 diabetes mellitus with diabetic polyneuropathy; Z79.4 Long term (current) use of insulin; D50.9 Iron deficiency anemia, unspecified; D51.9 Vitamin B12 deficiency anemia, unspecified; Z87.19 Personal history of other diseases of the digestive system; I10 Essential (primary) hypertension; Z87.891 Personal history of nicotine dependence; Z99.81 Dependence on supplemental oxygen; Z71.3 Dietary counseling and surveillance
CPT/HCPCS: 36415; 80048; 80053; 80076; 82784; 83690; 86704; 86709; 86803; 87340; 87505; 94640; 96361; 96365; 96375; 99223; 99232; 99233; 99239; 99285; J1650; 74174; 74176; 74181; 76700; 81003; 81015; 82270; 82728; 83036; 83516; 83540; 83550; 83605; 83735; 84165; 84443; 84484; 85025; 86038; 86255; 87324; 87798; 99220; G0378; J2270; J2405; J3490; J7620